=== PATIENT | female | born 1950 | race Caucasian/White ===

== ENCOUNTER 2017-10-09 08:37 | Day surgery (SDC) | payer MEDICARE ==
[2017-10-05 14:51] LABS: BASOPHILS % (AUTO) 0.3 % (0-1); EOSINOPHILS # (AUTO) 0.1 X10'3 (0-0.9); LYMPHOCYTES # (AUTO) 1.9 X10'3 (1.1-4.8); LYMPHOCYTES % (AUTO) 31.3 % (21-51); MEAN CORPUSCULAR HGB CONC 35.6 % (33.0-36.5); MEAN PLATELET VOLUME 7.2 FL (7.4-10.4); MONOCYTES # (AUTO) 0.5 X10'3 (0-0.9); MONOCYTES % (AUTO) 8.8 % (2-12); NEUTROPHILS # (AUTO) 3.5 X10'3 (1.8-7.7); NEUTROPHILS % (AUTO) 57.6 % (42-75); PRE OP HEMATOCRIT 43.5 % (35.0-45.0); PRE OP HEMOGLOBIN 15.5 g/dL (12.0-16.0); PRE OP PLATELET COUNT 289 X10'3 (140-440); RED CELL DISTRIBUTION WIDTH 15.1 % (11.5-14.5)
[2017-10-05 14:53] LABS: CLARITY,URINE CLEAR (Clear); COLOR,URINE YELLOW (Yellow); GLUCOSE, URINE NEGATIVE (Neg); KETONES,URINE TRACE mg/dl (Neg); LEUKOCYTE ESTERASE ,URINE NEGATIVE (Neg); NITRITES, URINE NEGATIVE (Neg); OCCULT BLOOD,URINE NEGATIVE (Neg); PROTEIN,URINE NEGATIVE (Neg)
[2017-10-05 14:55] LABS: UA COLLECTION TYPE CLN CATCH MIDSTREAM
[2017-10-05 15:06] LABS: ALBUMIN 4.2 G/DL (3.4-5.0); ALBUMIN/GLOBULIN RATIO 1.3 (1.1-1.5); ALKALINE PHOSPHATASE 80 IU/L (46-116); BLOOD UREA NITROGEN 18 MG/DL (7-18); BUN/CREATININE RATIO 18.8 (6.6-38.0); CALCIUM 9.6 MG/DL (8.5-10.1); CHLORIDE 101 MMOL/L (99-107); CREATININE 0.96 MG/DL (0.40-0.90); PRE OP ALT 38 U/L (30-65); PRE OP ANION GAP 10 (8-16); PRE OP AST 22 U/L (10-37); PRE OP BILIRUB, TOTAL 0.5 MG/DL (0.0-1.0); PRE OP GLUCOSE 124 MG/DL (70-104); PRE OP POTASSIUM 3.7 MMOL/L (3.4-5.1); PRE OP SODIUM 142 MMOL/L (135-145); TOTAL CARBON DIOXIDE 31.5 MMOL/L (24-32); TOTAL PROTEIN 7.5 G/DL (6.4-8.2); eGFR 58 ML/MIN
[~2017-10-09] VITALS: Ht 165.1 cm; Wt 93.3 kg
[2017-10-09] VITALS (12 sets, daily range): BP systolic 125–167; BP diastolic 55–89
[~2017-10-09 08:37] MED LIST: BUSP5TAB3 PO; CYAN100087 PO; Cefazolin 2GM/100ML NS IVPB IV ONE; DULO60CA64 PO; HYDR-565 PO; HYDR25TA4 PO; LUTE10TA PO; MECL12.584 PO; MELA5TAB12 PO; OMEP20TA5 PO; ONDA4TAB9 SL; PHEN97.511 PO; PROM25TA14 PO; famotidine 20mg tablet PO ONE; ringers solution, lacted 1,000 ML IV SCH
[2017-10-09] MEDS ORDERED: LIDOcaine 1% (10mg/ml) 2ml vial ONE (09:23)
[2017-10-09] MEDS ORDERED: ringers solution, lacted 1,000 ML IV SCH (10:49)
[2017-10-09] MEDS ORDERED: morphine 4 MG/ML inj SYRINge IV PRN ×2 (10:50)
[2017-10-09] MEDS ORDERED: proCHLORperazine 10 MG/2 ml inj IV PRN (10:50)
[2017-10-09] MEDS ORDERED: ondansetron/PF 4mg/2ml inj IV PRN (10:50)
[2017-10-09] MEDS ORDERED: meperidine/PF 50mg/ml syringe IV PRN ×2 (10:50)
[2017-10-09] MEDS ORDERED: sevoflurane 250ml liquid IH ONE (11:40)
[2017-10-09] MEDS ORDERED: midazolam 2 mg/2 ml injection ONE (11:41)
[2017-10-09] MEDS ORDERED: fentaNYL/PF 50MCG/1 ML 2ML syringe ONE (11:41)
[2017-10-09] MEDS ORDERED: propofol inj 20 ML IV ONE (11:53)
[2017-10-09] MEDS ORDERED: rocuronium 10mg/ml inj IV ONE (11:53)
[2017-10-09] MEDS ORDERED: glycopyrrolate 0.2mg/ml inj ONE (11:59)
[2017-10-09] MEDS ORDERED: neostigmine methylsulfate 1 MG/ML 10ml vial ONE (11:59)
[2017-10-09] MEDS ORDERED: ondansetron/PF 4mg/2ml inj ONE (11:59)
[2017-10-09] MEDS ORDERED: LIDOcaine 2% (20mg/ml) 5ml vial ONE (11:59)
[2017-10-09] MEDS ORDERED: dexamethasone sod phosphate 4mg/ml inj. ONE (11:59)
[2017-10-09] MEDS: meperidine/PF 50mg/ml syringe IV PRN ×2 (13:15→13:20)
[2017-10-09] MEDS ORDERED: acetaminophen 1,000mg/100ml IV 100 ML IV ONE (13:30)
[2017-10-09] MEDS ORDERED: HYDROcodone/acetaminophen 10/325mg tab PO PRN ×2 (13:50)
== END 2017-10-09 14:10 | disposition home or self-care (01) ==
LOC: PAS 08:37
PROVIDERS: ATTEND Surgery
DX: K80.12 Calculus of gallbladder with acute and chronic cholecystitis without obstruction (principal); I10 Essential (primary) hypertension; E66.9 Obesity, unspecified; K21.9 Gastro-esophageal reflux disease without esophagitis; M19.90 Unspecified osteoarthritis, unspecified site; M79.7 Fibromyalgia; Z68.34 Body mass index [BMI] 34.0-34.9, adult; Z88.4 Allergy status to anesthetic agent; Z79.82 Long term (current) use of aspirin; Z90.710 Acquired absence of both cervix and uterus; Z98.890 Other specified postprocedural states; Z79.899 Other long term (current) drug therapy
CPT/HCPCS: 36415; 47562; 80053; 81003; 85025; 93005; A6251; J0131; J0690; J1100; J2001; J2175; J2250; J2270; J2405; J2704; J2710; J3010; J3490; J7120; 88304; A7000

== ENCOUNTER 2020-04-26 16:43 | Emergency (ER) | payer MEDICARE ==
[~2020-04-26] VITALS: Ht 170.2 cm; Wt 90.0 kg
[~2020-04-26 16:43] MED LIST changes: -Cefazolin 2GM/100ML NS IVPB IV ONE; -DULO60CA64 PO; +DULO60CA65 PO; +HYDR-4353 PO; -HYDR-565 PO; +MECL-184 PO; -MECL12.584 PO; -famotidine 20mg tablet PO ONE; -ringers solution, lacted 1,000 ML IV SCH
[2020-04-26 16:51] VITALS: BP 184/98
== END 2020-04-26 18:16 | disposition home or self-care (01) ==
LOC: ER 16:43
DX: R05 Cough (principal); Z20.828 Contact with and (suspected) exposure to other viral communicable diseases; J06.9 Acute upper respiratory infection, unspecified; Z88.8 Allergy status to other drugs, medicaments and biological substances; Z79.899 Other long term (current) drug therapy
CPT/HCPCS: 36415; 71045; 87635; 99284

== ENCOUNTER 2020-10-31 09:19 | Emergency (ER) | payer MEDICARE ==
[~2020-10-31] VITALS: Ht 165.1 cm; Wt 100.0 kg
[~2020-10-31 09:19] MED LIST changes: -MECL-184 PO; +MECL-231 PO
[2020-10-31] MEDS ORDERED: morphine 4 MG/ML inj SYRINge IM ONE (09:35)
[2020-10-31] MEDS ORDERED: ondansetron 4mg rapidly disintigrating tab PO ONE (09:35)
[2020-10-31] MEDS ORDERED: TETanus/Pertussis (Acell)/Diphther VAC/PF (Tdap-Adult) 0.5ml syringe IMVAC ONE (10:45)
[2020-10-31 10:55] VITALS: BP 168/75
== END 2020-10-31 11:06 | disposition home or self-care (01) ==
LOC: ER 09:19
DX: S20.211A Contusion of right front wall of thorax, initial encounter (principal); S90.811A Abrasion, right foot, initial encounter; S09.90XA Unspecified injury of head, initial encounter; M25.521 Pain in right elbow; M79.7 Fibromyalgia; Z79.2 Long term (current) use of antibiotics; Z88.8 Allergy status to other drugs, medicaments and biological substances; Z79.899 Other long term (current) drug therapy; W18.30XA Fall on same level, unspecified, initial encounter; Y93.89 Activity, other specified; Y92.89 Other specified places as the place of occurrence of the external cause; Y99.8 Other external cause status
CPT/HCPCS: 70450; 71101; 90471; 90715; 96372; 99284; J2270

== ENCOUNTER 2020-11-07 11:01 | Emergency (ER) | payer MEDICARE ==
[~2020-11-07] VITALS: Ht 165.1 cm; Wt 99.0 kg
[2020-11-07 11:12] VITALS: BP 169/69
[2020-11-07] MEDS ORDERED: ketorolac trometh inj. 60 MG/2 ML VIAL IM ONE (12:30)
[2020-11-07] MEDS ORDERED: morphine 4 MG/ML inj SYRINge IM ONE (12:30)
[2020-11-07] MEDS ORDERED: LIDO700A32 TOP (12:57)
== END 2020-11-07 13:25 | disposition home or self-care (01) ==
LOC: ER 11:01
DX: R07.81 Pleurodynia (principal); M79.7 Fibromyalgia; Z88.8 Allergy status to other drugs, medicaments and biological substances; Z79.899 Other long term (current) drug therapy
CPT/HCPCS: 71046; 96372; 99284; J1885

== ENCOUNTER 2021-05-18 14:50 | Emergency (ER) | payer MEDICARE ==
[~2021-05-18] VITALS: Ht 166.4 cm; Wt 106.4 kg
[~2021-05-18 14:50] MED LIST changes: +LIDO700A32 TOP
--- NOTE | 2021-05-18 18:49 | NUR ---
Patient awake in bed with grand daughter at bedside. She denies taking additional norco and that she is actually cutting back on them. She states she slipped out of her bed and was too weak to get up which is new for her. She also reports that she has been struggling to remember things for approximately 1 month. CBG and EKG performed. IV placed and labs drawn.
[2021-05-18 18:59] LABS: LYMPHOCYTES # (AUTO) 0.7 X10'3 (1.1-4.8); RED CELL DISTRIBUTION WIDTH 14.2 % (11.5-14.5); WHITE BLOOD COUNT 5.3 X10'3 (4.5-11.0)
[2021-05-18 19:01] LABS: BASOPHILS % (AUTO) 0.8 % (0-1); EOSINOPHILS % (AUTO) 0.4 % (0-6); HEMATOCRIT 40.7 % (35.0-45.0); HEMOGLOBIN 13.9 g/dl (12.0-16.0); LYMPHOCYTES % (AUTO) 13.2 % (21-51); MEAN CORPUSCULAR HEMOGLOBIN 30.9 PG (27.0-31.0); MEAN CORPUSCULAR HGB CONC 34.1 g/dL (33.0-36.5); MEAN CORPUSCULAR VOLUME 90.5 FL (78-98); MEAN PLATELET VOLUME 7.5 FL (7.4-10.4); MONOCYTES # (AUTO) 0.5 X10'3 (0-0.9); MONOCYTES % (AUTO) 10.1 % (2-12); NEUTROPHILS % (AUTO) 75.5 % (42-75); PLATELET COUNT 166 X10'3 (140-440)
[2021-05-18 19:09] LABS: ALANINE AMINOTRANSFERASE 32 U/L (12-78); ALBUMIN 3.4 G/DL (3.4-5.0); ALKALINE PHOSPHATASE 70 IU/L (46-116); ANION GAP 8 (8-16); ASPARTATE AMINO TRANSFERASE 20 U/L (10-37); BILIRUBIN,TOTAL 0.7 MG/DL (0.1-1.0); BLOOD UREA NITROGEN 9 MG/DL (7-18); BUN/CREATININE RATIO 8.3 (6.6-38.0); CALCIUM 8.5 MG/DL (8.5-10.1); CHLORIDE 101 MMOL/L (99-107); CREATININE 1.08 MG/DL (0.40-0.90); GLUCOSE 111 MG/DL (70-104); SODIUM 141 MMOL/L (135-145); TOTAL CARBON DIOXIDE 31.6 MMOL/L (24-32); TOTAL PROTEIN 6.8 G/DL (6.4-8.2); eGFR 50 ML/MIN
[2021-05-18 19:11] LABS: CLARITY,URINE SLIGHTLY CLOUDY (Clear); COLOR,URINE YELLOW (Yellow); GLUCOSE, URINE NEGATIVE (Neg); KETONES,URINE NEGATIVE (Neg); LEUKOCYTE ESTERASE ,URINE NEGATIVE (Neg); NITRITES, URINE NEGATIVE (Neg); OCCULT BLOOD,URINE NEGATIVE (Neg); PROTEIN,URINE NEGATIVE (Neg); UROBILINOGEN,URINE 0.2 E.U/dL (0.2-1.0)
[2021-05-18 19:15] LABS: UA COLLECTION TYPE STRAIGHT CATH
[2021-05-18 19:17] LABS: BACTERIA,URINE FEW /HPF (Neg); MUCUS STRANDS FEW /LPF (Neg); RBC,URINE 0-2 /HPF (0-2); SQUAMOUS EPITHELIAL CELL,UR MODERATE /LPF (FEW); WBC,URINE 0-4 /HPF (0-4)
[2021-05-18] MEDS: amox tr/potassium clavulanate 875/125mg TAB PO ONE (19:17)
[2021-05-18 19:18] LABS: TRANSITIONAL EPI CELLS,URINE FEW /HPF
--- NOTE | 2021-05-18 19:25 | NUR ---
Patient medicated and updated on POC.
[2021-05-18] MEDS ORDERED: AMOX-422 PO (19:34)
[2021-05-18 19:50] VITALS: BP 130/57
== END 2021-05-18 19:58 | disposition home or self-care (01) ==
LOC: ER 14:50
DX: T40.601A Poisoning by unspecified narcotics, accidental (unintentional), initial encounter (principal); K02.9 Dental caries, unspecified; K04.7 Periapical abscess without sinus; K08.89 Other specified disorders of teeth and supporting structures; Z88.8 Allergy status to other drugs, medicaments and biological substances; Z79.2 Long term (current) use of antibiotics; Z79.899 Other long term (current) drug therapy; Y92.89 Other specified places as the place of occurrence of the external cause
CPT/HCPCS: 36415; 71045; 80053; 81001; 82948; 83880; 84484; 85025; 93005; 99285

== ENCOUNTER 2021-05-22 11:54 | Emergency (ER) | payer MEDICARE ==
[~2021-05-22] VITALS: Ht 165.1 cm; Wt 104.5 kg
[~2021-05-22 11:54] MED LIST changes: +AMOX-422 PO
[2021-05-22 12:33] LABS: BASOPHILS # (AUTO) 0.1 X10'3 (0-0.2); BASOPHILS % (AUTO) 0.9 % (0-1); EOSINOPHILS # (AUTO) 0.1 X10'3 (0-0.9); EOSINOPHILS % (AUTO) 1.3 % (0-6); HEMATOCRIT 46.1 % (35.0-45.0); HEMOGLOBIN 16.1 g/dl (12.0-16.0); LYMPHOCYTES # (AUTO) 1.4 X10'3 (1.1-4.8); LYMPHOCYTES % (AUTO) 25.3 % (21-51); MEAN CORPUSCULAR HEMOGLOBIN 31.2 PG (27.0-31.0); MEAN CORPUSCULAR VOLUME 89.1 FL (78-98); MEAN PLATELET VOLUME 7.7 FL (7.4-10.4); MONOCYTES # (AUTO) 0.7 X10'3 (0-0.9); MONOCYTES % (AUTO) 12.5 % (2-12); NEUTROPHILS # (AUTO) 3.4 X10'3 (1.8-7.7); PLATELET COUNT 268 X10'3 (140-440); RED BLOOD COUNT 5.18 X10'6 (4.20-5.60); RED CELL DISTRIBUTION WIDTH 14.1 % (11.5-14.5); WHITE BLOOD COUNT 5.6 X10'3 (4.5-11.0)
[2021-05-22 12:47] LABS: ALANINE AMINOTRANSFERASE 49 U/L (12-78); ALBUMIN 3.9 G/DL (3.4-5.0); ALBUMIN/GLOBULIN RATIO 0.9 (1.1-1.5); ALKALINE PHOSPHATASE 82 IU/L (46-116); ANION GAP 14 (8-16); ASPARTATE AMINO TRANSFERASE 40 U/L (10-37); BILIRUBIN,TOTAL 0.9 MG/DL (0.1-1.0); BLOOD UREA NITROGEN 18 MG/DL (7-18); BUN/CREATININE RATIO 18.9 (6.6-38.0); CALCIUM 9.2 MG/DL (8.5-10.1); CHLORIDE 102 MMOL/L (99-107); CREATININE 0.95 MG/DL (0.40-0.90); GLUCOSE 129 MG/DL (70-104); POTASSIUM 3.6 MMOL/L (3.5-5.1); SODIUM 141 MMOL/L (135-145); TOTAL CARBON DIOXIDE 25.3 MMOL/L (24-32); TOTAL PROTEIN 8.1 G/DL (6.4-8.2); eGFR 58 ML/MIN
[2021-05-22 12:57] LABS: LIPASE 141 U/L (73-393)
--- NOTE | 2021-05-22 13:20 | NUR ---
grand daughter at bedside.
[2021-05-22] MEDS ORDERED: normal saline 1000ML IV soln IVB ONE ×2 (13:35→13:45)
[2021-05-22] MEDS ORDERED: ondansetron/PF 4mg/2ml inj IV ONE (13:45)
[2021-05-22] MEDS ORDERED: morphine 4 MG/ML inj SYRINge IV PRN (13:45)
--- NOTE | 2021-05-22 15:02 | NUR ---
notified dr kelley regarding pt condition c/o headache systolic bp 220 ,nauseaous ,c/o blurred vision ,as per md she will order head ct .
--- NOTE | 2021-05-22 15:04 | NUR ---
grand daughter at [facility].
[2021-05-22] MEDS ORDERED: diphenhydrAMINE 50 mg/ml inj IV ONE (15:15)
[2021-05-22] MEDS ORDERED: proCHLORperazine 10 MG/2 ml inj IV ONE (15:15)
[2021-05-22 16:47] LABS: CLARITY,URINE SLIGHTLY CLOUDY (Clear); GLUCOSE, URINE NEGATIVE (Neg); KETONES,URINE >=80 mg/dl (Neg); LEUKOCYTE ESTERASE ,URINE NEGATIVE (Neg); NITRITES, URINE NEGATIVE (Neg); OCCULT BLOOD,URINE NEGATIVE (Neg); PROTEIN,URINE 30 mg/dl (Neg); UROBILINOGEN,URINE 0.2 E.U/dL (0.2-1.0)
[2021-05-22 16:55] LABS: COLOR,URINE DARK YELLOW (Yellow); UA COLLECTION TYPE OTHER
[2021-05-22 16:58] VITALS: BP 180/92
[2021-05-22] MEDS ORDERED: ONDA4TAB12 PO ×3 (16:58→17:02)
[2021-05-22 17:03] LABS: BACTERIA,URINE 1+ /HPF (Neg); MUCUS STRANDS MODERATE /LPF (Neg); RBC,URINE 0-2 /HPF (0-2); SQUAMOUS EPITHELIAL CELL,UR MANY /LPF (FEW); TRANSITIONAL EPI CELLS,URINE FEW /HPF; WBC,URINE 0-4 /HPF (0-4); YEAST FEW /HPF (NEGATIVE)
== END 2021-05-22 17:18 | disposition home or self-care (01) ==
LOC: ER 11:54
DX: R53.1 Weakness (principal); R51.9 Headache, unspecified; R42 Dizziness and giddiness; E86.0 Dehydration; A08.4 Viral intestinal infection, unspecified; K04.7 Periapical abscess without sinus; M79.7 Fibromyalgia; Z79.899 Other long term (current) drug therapy; Z79.2 Long term (current) use of antibiotics; Z88.8 Allergy status to other drugs, medicaments and biological substances
CPT/HCPCS: 36415; 70450; 71045; 74176; 80053; 81001; 83690; 84443; 84484; 85025; 93005; 96361; 96374; 96375; 99285; J0780; J1200; J2270; J2405; J7030

== ENCOUNTER 2021-05-26 09:56 | Emergency (ER) | payer MEDICARE ==
[~2021-05-26] VITALS: Ht 165.1 cm; Wt 106.4 kg
[~2021-05-26 09:56] MED LIST changes: +ONDA4TAB12 PO
[2021-05-26] MEDS ORDERED: morphine 4 MG/ML inj SYRINge IV PRN (10:10)
[2021-05-26] MEDS ORDERED: ondansetron/PF 4mg/2ml inj IV ONE (10:10)
[2021-05-26] MEDS ORDERED: normal saline 1000ML IV soln IVB ONE (10:10)
[2021-05-26 10:32] LABS: BASOPHILS # (AUTO) 0.1 X10'3 (0-0.2); BASOPHILS % (AUTO) 0.9 % (0-1); EOSINOPHILS % (AUTO) 0.8 % (0-6); HEMATOCRIT 46.1 % (35.0-45.0); HEMOGLOBIN 16.2 g/dl (12.0-16.0); LYMPHOCYTES # (AUTO) 1.6 X10'3 (1.1-4.8); LYMPHOCYTES % (AUTO) 25.2 % (21-51); MEAN CORPUSCULAR HEMOGLOBIN 31.4 PG (27.0-31.0); MEAN CORPUSCULAR HGB CONC 35.2 g/dL (33.0-36.5); MEAN CORPUSCULAR VOLUME 89.4 FL (78-98); MEAN PLATELET VOLUME 7.7 FL (7.4-10.4); MONOCYTES # (AUTO) 0.6 X10'3 (0-0.9); MONOCYTES % (AUTO) 9.6 % (2-12); NEUTROPHILS % (AUTO) 63.5 % (42-75); PLATELET COUNT 394 X10'3 (140-440); RED BLOOD COUNT 5.16 X10'6 (4.20-5.60); RED CELL DISTRIBUTION WIDTH 13.8 % (11.5-14.5); WHITE BLOOD COUNT 6.3 X10'3 (4.5-11.0)
[2021-05-26] MEDS ORDERED: METO-292 PO (10:39)
[2021-05-26 10:51] LABS: ALANINE AMINOTRANSFERASE 82 U/L (12-78); ALBUMIN/GLOBULIN RATIO 1.1 (1.1-1.5); ALKALINE PHOSPHATASE 78 IU/L (46-116); ANION GAP 17 (8-16); ASPARTATE AMINO TRANSFERASE 66 U/L (10-37); BILIRUBIN,TOTAL 0.9 MG/DL (0.1-1.0); BLOOD UREA NITROGEN 15 MG/DL (7-18); BUN/CREATININE RATIO 16.5 (6.6-38.0); CALCIUM 9.3 MG/DL (8.5-10.1); CHLORIDE 101 MMOL/L (99-107); CREATININE 0.91 MG/DL (0.40-0.90); GLUCOSE 137 MG/DL (70-104); POTASSIUM 3.5 MMOL/L (3.5-5.1); SODIUM 142 MMOL/L (135-145); TOTAL CARBON DIOXIDE 24.3 MMOL/L (24-32); TOTAL PROTEIN 7.5 G/DL (6.4-8.2); eGFR 61 ML/MIN
[2021-05-26 10:53] LABS: LIPASE 151 U/L (73-393)
--- NOTE | 2021-05-26 12:49 | NUR ---
PT AMBULATORY WITH RN AND FAMILY MEMBER ASSIST TO BATHROOM AND BACK TO ROOM. TOLERATED WELL.
[2021-05-26 13:36] VITALS: BP 173/83
[2021-05-26 13:38] LABS: CLARITY,URINE SLIGHTLY CLOUDY (Clear); COLOR,URINE YELLOW (Yellow); GLUCOSE, URINE NEGATIVE (Neg); KETONES,URINE >=80 mg/dl (Neg); LEUKOCYTE ESTERASE ,URINE NEGATIVE (Neg); NITRITES, URINE NEGATIVE (Neg); OCCULT BLOOD,URINE NEGATIVE (Neg); PROTEIN,URINE TRACE mg/dl (Neg); UROBILINOGEN,URINE 0.2 E.U/dL (0.2-1.0)
[2021-05-26 13:52] LABS: UA COLLECTION TYPE VOIDED
[2021-05-26 13:54] LABS: SQUAMOUS EPITHELIAL CELL,UR MANY /LPF (FEW)
[2021-05-26 13:56] LABS: MUCUS STRANDS MODERATE /LPF (Neg)
[2021-05-26 13:57] LABS: BACTERIA,URINE 1+ /HPF (Neg)
[2021-05-26 13:58] LABS: WBC,URINE 0-4 /HPF (0-4)
[2021-05-26 13:59] LABS: RBC,URINE 0-2 /HPF (0-2)
[2021-05-26 14:08] LABS: CAL OXALATE CRYSTALS 1+ /HPF (NEGATIVE)
== END 2021-05-26 14:01 | disposition home or self-care (01) ==
LOC: ER 09:56
DX: A08.4 Viral intestinal infection, unspecified (principal); R11.2 Nausea with vomiting, unspecified; R19.7 Diarrhea, unspecified; R10.84 Generalized abdominal pain; Z88.8 Allergy status to other drugs, medicaments and biological substances; Z79.2 Long term (current) use of antibiotics; Z79.899 Other long term (current) drug therapy
CPT/HCPCS: 36415; 80053; 81001; 83690; 84484; 85025; 96374; 96375; 99284; J2270; J2405; J7030

== ENCOUNTER 2022-01-23 05:22 | Inpatient (IN) | payer MEDICARE ==
[2022-01-18 16:04] LABS: EOSINOPHILS # (AUTO) 0.1 X10'3 (0-0.9); EOSINOPHILS % (AUTO) 2.1 % (0-6); LYMPHOCYTES # (AUTO) 1.3 X10'3 (1.1-4.8); LYMPHOCYTES % (AUTO) 28.4 % (21-51); MEAN CORPUSCULAR HEMOGLOBIN 31.2 PG (27.0-31.0); MEAN CORPUSCULAR HGB CONC 34.2 g/dL (33.0-36.5); MEAN CORPUSCULAR VOLUME 91.4 FL (78-98); MEAN PLATELET VOLUME 8.1 FL (7.4-10.4); MONOCYTES # (AUTO) 0.4 X10'3 (0-0.9); MONOCYTES % (AUTO) 9.3 % (2-12); NEUTROPHILS # (AUTO) 2.8 X10'3 (1.8-7.7); NEUTROPHILS % (AUTO) 59.2 % (42-75); PRE OP HEMATOCRIT 43.2 % (35.0-45.0); PRE OP HEMOGLOBIN 14.7 g/dL (12.0-16.0); PRE OP PLATELET COUNT 199 X10'3 (140-440); RED BLOOD COUNT 4.72 X10'6 (4.20-5.60); RED CELL DISTRIBUTION WIDTH 13.3 % (11.5-14.5)
[2022-01-18 16:16] LABS: PRE OP INR 1.1 INR; PRE OP PROTIME 10.9 SECONDS (9.0-12.0)
[2022-01-18 16:28] LABS: ALBUMIN 4.1 G/DL (3.4-5.0); ALBUMIN/GLOBULIN RATIO 1.2 (1.1-1.5); ALKALINE PHOSPHATASE 90 IU/L (46-116); BLOOD UREA NITROGEN 13 MG/DL (7-18); CALCIUM 8.9 MG/DL (8.5-10.1); CHLORIDE 105 MMOL/L (99-107); PRE OP ALT 43 U/L (30-65); PRE OP ANION GAP 11 (8-16); PRE OP AST 26 U/L (10-37); PRE OP BILIRUB, TOTAL 0.6 MG/DL (0.0-1.0); PRE OP GLUCOSE 135 MG/DL (70-104); PRE OP SODIUM 145 MMOL/L (135-145); TOTAL CARBON DIOXIDE 28.7 MMOL/L (24-32); TOTAL PROTEIN 7.4 G/DL (6.4-8.2); eGFR 54 ML/MIN
[2022-01-23] VITALS (22 sets, daily range): BP systolic 99–169; BP diastolic 44–87
[~2022-01-23] VITALS: Ht 165.1 cm; Wt 104.2 kg
[~2022-01-23 05:22] MED LIST changes: -AMOX-422 PO; +ASCO1TAB42 PO; +ATOR10TA70 PO; +BETA1TAB18 PO; +CHOL400T57 PO; -DULO60CA65 PO; +FIBERWELL PO; +GLIP5TAB13 PO; -HYDR-4353 PO; -HYDR25TA4 PO; +LACT1CAP65 PO; -LIDO700A32 TOP; -LUTE10TA PO; -MECL-231 PO; +METO-384 PO; +MIRA50TA PO; +MULT-1085 PO; +OMEP20TA43 PO; -OMEP20TA5 PO; -ONDA4TAB12 PO; -PHEN97.511 PO; +POWER C PO; +PREG300C PO
[2022-01-23] MEDS ORDERED: famotidine 20mg tablet PO ONE (05:30)
[2022-01-23] MEDS ORDERED: DOCUMENT DATE & TIME OF BETA-BLOCKER PO ONE (05:30)
[2022-01-23] MEDS ORDERED: tranexamic acid inj. 1,000 MG in normal saline 100ml IV soln 90 ML IV ONE (05:30)
[2022-01-23] MEDS ORDERED: vancomycin 1,500 MG in NS 300ml IV soln IV ONE (05:30)
[2022-01-23] MEDS ORDERED: ceFAZolin inj. 2,000 MG in dextrose 5%-water 100 ML IV ONE (05:30)
--- NOTE | 2022-01-23 05:30 | NUR ---
CSM: PEDAL PULSES PRESENT AND MARKED. PATIENT USED MUPIROCIN CREAM AND READ BROCHURE. EDUCATED PATIENT ON THE USE OF THE INCENTIVE SPIROMETER
[2022-01-23] MEDS: ringers solution, lacted 1,000 ML IV SCH ×2 (05:56→12:36)
[2022-01-23] MEDS ORDERED: ketorolac trometh. 30mg/ml inj. ONE (06:42)
[2022-01-23] MEDS ORDERED: cloNIDine hcl/PF 100mcg/ml inj ONE ×2 (06:43→07:12)
[2022-01-23] MEDS ORDERED: vancomycin 1,000mg inj ONE (06:43)
[2022-01-23] MEDS ORDERED: ROPIVAcaine 0.5% (5mg/ml) 30ml vial ONE ×2 (06:43→07:12)
[2022-01-23] MEDS ORDERED: fentaNYL /PF 50mcg/ml 5ml ampule ONE (07:14)
[2022-01-23] MEDS ORDERED: ePHEDrine 50MG/ML INJ. ONE (07:20)
[2022-01-23] MEDS ORDERED: sevoflurane 250ml liquid IH ONE (07:20)
[2022-01-23] MEDS ORDERED: HYDROmorphone/PF 0.2 MG/ML SYRINGE IV PRN ×2 (08:45)
[2022-01-23] MEDS ORDERED: ringers solution, lacted 1,000 ML IV SCH (08:45)
[2022-01-23] MEDS ORDERED: ondansetron/PF 4mg/2ml inj IV PRN ×2 (08:45→10:45)
[2022-01-23] MEDS ORDERED: morphine 2 MG/ML inj. syringe IV PRN (08:45)
[2022-01-23] MEDS ORDERED: ROPIVAcaine 0.5% (5mg/ml) 30ml vial IJ ONE (08:48)
[2022-01-23] MEDS ORDERED: cloNIDine hcl/PF 100mcg/ml inj IJ ONE (08:49)
--- NOTE | 2022-01-23 10:35 | NUR ---
Received from OR via ORTHO BED WITH NCTRACY , accompanied by Anesthesiologist FOREST and report given by Anesthesiolgist. PATIENT WITH 20G PIV IN RIGHT UE RUNNING LR AT 100. LEFT KNEE WITH KNEE WRAP THAT IS CDI. STEPHAN VAC IN PLACE WITH SUCTION MAINTAINED TO DRESSING. +DP TO LEFT FOOT. FLOEY CATHETER PRESENT WITH CLEAR YELLOW URINE IN ATRIUM. Addendum: 01/23/22 at 1049 by Kyle Burks RN, RN Amended: Links added.
[2022-01-23] MEDS ORDERED: HYDROcodone/acetaminophen 10/325mg tab PO PRN (10:45)
[2022-01-23] MEDS ORDERED: HYDROmorphone 1 mg/ml syringe IV PRN (10:45)
[2022-01-23] MEDS ORDERED: acetaminophen 325mg tablet PO PRN (10:45)
[2022-01-23] MEDS ORDERED: magnesium hydroxide 30ml (MOM) UD suspension PO PRN (10:45)
[2022-01-23] MEDS ORDERED: bisacodyl 10mg suppository rectal RC PRN (10:45)
[2022-01-23] MEDS ORDERED: HYDROmorphone inj. 0.5 MG/0.5 ML DISP.SYRIN IV PRN (10:45)
[2022-01-23] MEDS ORDERED: naloxone 0.4 mg/ml inj IV PRN (10:45)
[2022-01-23] MEDS ORDERED: diphenhydrAMINE 25mg capsule PO PRN ×2 (10:45)
[2022-01-23] MEDS ORDERED: dextrose 50%-water 50ml dispensing syringe IV PRN ×2 (10:50)
[2022-01-23] MEDS ORDERED: glucagon, human recombinant 1mg kit SUBCUT PRN (10:50)
[2022-01-23] MEDS ORDERED: MESSAGE TO PHARMACY PO ONE (10:50)
[2022-01-23] MEDS ORDERED: DEXTROSE 15 GM of carb/4 tabs (each vial/BOTTLE has 4 tablets) PO PRN ×2 (10:50)
[2022-01-23] MEDS ORDERED: glycopyrrolate 0.2mg/ml inj ONE (10:56)
[2022-01-23] MEDS ORDERED: propofol inj 20 ML IV ONE (10:56)
[2022-01-23] MEDS ORDERED: rocuronium 10mg/ml inj IV ONE (10:56)
[2022-01-23] MEDS ORDERED: dexamethasone sod phosphate 4mg/ml inj. ONE (10:56)
[2022-01-23] MEDS ORDERED: LIDOcaine 2% (20mg/ml) 5ml vial ONE (10:56)
[2022-01-23] MEDS ORDERED: acetaminophen 1,000mg/100ml IV 100 ML IV ONE (10:56)
[2022-01-23] MEDS ORDERED: neostigmine methylsulfate 1 MG/ML 10ml vial ONE (10:56)
[2022-01-23] MEDS ORDERED: ondansetron/PF 4mg/2ml inj ONE (10:56)
[2022-01-23] MEDS ORDERED: insulin regular, human 10 units/0.1 ml syringe IV ONE ×2 (11:10→11:15)
[2022-01-23] MEDS ORDERED: ipratropium/albuterol 3ml nebule NEB PRN (11:10)
[2022-01-23] MEDS: morphine 4 MG/ML inj SYRINge IV PRN ×2 (11:18→11:39)
[2022-01-23] MEDS ORDERED: ipratropium/albuterol 3ml nebule NEB ONE (12:00)
--- NOTE | 2022-01-23 12:05 | NUR ---
CARE OF PATIENT AND REPORT HAS BEEN CALLED. ALL QUESTIONS ANSWERED TO ACCEPTING RN. PATIENT HAS MET ALL CRITERIA FOR TRANSFER TO THE ORTHO FLOOR. VSS. DRESSINGS INTACT. BED LOW, CALL LIGHT PRESENT AND 2 RAILS UP. KANWAL WALKER PRESENT TO ACCEPT. VSS. PATIENT AWAKE AND VERBALLY APPROPRIATE. PAIN AT A TOLERABLE LEVEL. Addendum: 01/23/22 at 1220 by Kyle Chaudhry - KANWAL RN Amended: Links added.
[2022-01-23] MEDS: potassium Cl 20mEq in NS 1,000 ML IV SCH ×2 (12:36→20:18)
[2022-01-23] MEDS: HYDROcodone/acetaminophen 10/325mg tab PO PRN ×2 (13:02→20:06)
[2022-01-23] MEDS: pregabalin 75mg capsule PO SCH (15:45)
[2022-01-23] MEDS: ceFAZolin/D5W- 1GM premix 50 ML IV SCH (16:37)
--- NOTE | 2022-01-23 18:21 | NUR ---
Problems reprioritized. Patient report given, questions answered & plan of care reviewed with KANWAL Luu.
[2022-01-23] MEDS: insulin Lispro (HumaLOG) vial - multi-dose SQ SCH (18:55)
[2022-01-23] MEDS ORDERED: vancomycin/NS 1 GM ADD-VANTAGE 250 ML IV SCH (20:00)
[2022-01-23] MEDS: aspirin 81mg, enteric-coated 1 TAB TABLET.DR PO SCH (20:04)
[2022-01-23] MEDS: sennosides 8.6mg tablet PO SCH (20:04)
[2022-01-23] MEDS: busPIRone 5mg tablet PO SCH (20:04)
[2022-01-23] MEDS: Melatonin 3mg tablet PO SCH (21:00)
[2022-01-23] MEDS: insulin glargine (Lantus) pen - multi-dose SQ SCH (22:49)
[2022-01-24] MEDS: pregabalin 75mg capsule PO SCH ×3 (00:32→15:48)
[2022-01-24] MEDS: ceFAZolin/D5W- 1GM premix 50 ML IV SCH (00:32)
[2022-01-24] MEDS: HYDROcodone/acetaminophen 10/325mg tab PO PRN ×4 (01:41→14:00)
[2022-01-24 02:00] VITALS: BP 114/51
[2022-01-24 06:00] VITALS: BP 105/44
[2022-01-24 06:12] LABS: ANION GAP 7 (8-16); BASOPHILS % (AUTO) 0.4 % (0-1); CHLORIDE 103 MMOL/L (99-107); EOSINOPHILS % (AUTO) 0.2 % (0-6); HEMATOCRIT 35.7 % (35.0-45.0); HEMOGLOBIN 12.1 g/dl (12.0-16.0); LYMPHOCYTES # (AUTO) 1.3 X10'3 (1.1-4.8); LYMPHOCYTES % (AUTO) 16.2 % (21-51); MEAN CORPUSCULAR HEMOGLOBIN 30.9 PG (27.0-31.0); MEAN CORPUSCULAR HGB CONC 34.1 g/dL (33.0-36.5); MEAN CORPUSCULAR VOLUME 90.8 FL (78-98); MEAN PLATELET VOLUME 8.3 FL (7.4-10.4); MONOCYTES # (AUTO) 0.8 X10'3 (0-0.9); MONOCYTES % (AUTO) 10.1 % (2-12); NEUTROPHILS # (AUTO) 5.8 X10'3 (1.8-7.7); NEUTROPHILS % (AUTO) 73.1 % (42-75); PLATELET COUNT 183 X10'3 (140-440); POTASSIUM 4.1 MMOL/L (3.5-5.1); RED BLOOD COUNT 3.93 X10'6 (4.20-5.60); RED CELL DISTRIBUTION WIDTH 13.2 % (11.5-14.5); SODIUM 140 MMOL/L (135-145); WHITE BLOOD COUNT 7.9 X10'3 (4.5-11.0)
--- NOTE | 2022-01-24 06:30 | NUR ---
received report from bull, rn
[2022-01-24] MEDS: aspirin 81mg, enteric-coated 1 TAB TABLET.DR PO SCH ×2 (07:52→19:46)
[2022-01-24] MEDS: busPIRone 5mg tablet PO SCH ×2 (07:53→19:46)
[2022-01-24] MEDS: pantoprazole 40mg Tablet.DR PO SCH (07:53)
[2022-01-24] MEDS: mirabegron 25mg ER tablet PO SCH (07:53)
[2022-01-24] MEDS: metoprolol succinate 25mg (24-HOUR) SR. Tablet PO SCH (07:54)
[2022-01-24] MEDS: insulin Lispro (HumaLOG) vial - multi-dose SQ SCH ×2 (09:43→19:04)
[2022-01-24 11:33] VITALS: BP 125/49
--- NOTE | 2022-01-24 13:23 | NUR ---
SINCE PT BG DROPPED THIS AFTERNOON WILL CONTINUE TO MONITOR BG, THEREFORE PT IS NOT A CANDIDATE FOR INSULIN AT THIS TIME
[2022-01-24 14:00] VITALS: BP 130/52
--- NOTE | 2022-01-24 14:08 | NUR ---
PT F/C WAS D/C BEFORE DAY SHIFT. PT TELLS ME SHE DOESN'T HAVE AN URGE TO VOID, THEREFORE I BLADDER SCANNED HER, SCANNER SAID 135 ML IN BLADDER CONTINUE TO ENCOURAGE PO INTAKE.
--- NOTE | 2022-01-24 14:56 | NUR ---
EDUCATED PT ON HOW TO USE HER IS, PT RETURNED DEMO HER IS, CONTINUE TO ENCOURAGE PT TO USE IS
[2022-01-24] MEDS: potassium Cl 20mEq in NS 1,000 ML IV SCH (15:06)
--- NOTE | 2022-01-24 15:14 | NUR ---
SURGEON AT BEDSIDE AND IS AWARE OF PT KIDNEY FUNCTION AND IS AWARE THAT PT HAS NOT VOIDED YET
[2022-01-24] MEDS: oxyCODONE IR 5mg (immed. release) tablet PO PRN ×2 (15:47→19:46)
--- NOTE | 2022-01-24 18:23 | NUR ---
GAVE REPORT TO September
[2022-01-24 18:30] VITALS: BP 113/43
[2022-01-24] MEDS: sennosides 8.6mg tablet PO SCH (21:00)
[2022-01-24] MEDS: Melatonin 3mg tablet PO SCH (21:00)
[2022-01-24 22:00] VITALS: BP 137/59
[2022-01-24] MEDS: insulin glargine (Lantus) pen - multi-dose SQ SCH (22:44)
[2022-01-24] MEDS: temazepam 15mg capsule PO PRN (22:45)
[2022-01-25] MEDS: pregabalin 75mg capsule PO SCH ×3 (00:33→15:46)
[2022-01-25] MEDS: oxyCODONE IR 5mg (immed. release) tablet PO PRN ×5 (00:43→21:54)
[2022-01-25] MEDS: potassium Cl 20mEq in NS 1,000 ML IV SCH (02:45)
[2022-01-25 06:00] VITALS: BP 148/68
[2022-01-25 06:27] LABS: BASOPHILS % (AUTO) 0.6 % (0-1); EOSINOPHILS # (AUTO) 0.2 X10'3 (0-0.9); HEMATOCRIT 34.6 % (35.0-45.0); HEMOGLOBIN 11.7 g/dl (12.0-16.0); LYMPHOCYTES # (AUTO) 1.3 X10'3 (1.1-4.8); LYMPHOCYTES % (AUTO) 17.5 % (21-51); MEAN CORPUSCULAR HEMOGLOBIN 31.1 PG (27.0-31.0); MEAN CORPUSCULAR VOLUME 91.5 FL (78-98); MEAN PLATELET VOLUME 8.4 FL (7.4-10.4); MONOCYTES # (AUTO) 0.9 X10'3 (0-0.9); MONOCYTES % (AUTO) 11.7 % (2-12); NEUTROPHILS # (AUTO) 5.1 X10'3 (1.8-7.7); NEUTROPHILS % (AUTO) 67.2 % (42-75); PLATELET COUNT 144 X10'3 (140-440); RED BLOOD COUNT 3.78 X10'6 (4.20-5.60); RED CELL DISTRIBUTION WIDTH 13.5 % (11.5-14.5); WHITE BLOOD COUNT 7.6 X10'3 (4.5-11.0)
--- NOTE | 2022-01-25 06:42 | NUR ---
Patient in room ORTHO 4022. I have received report from KANWAL Luu and had the opportunity to ask questions and assume patient care.
[2022-01-25] MEDS: aspirin 81mg, enteric-coated 1 TAB TABLET.DR PO SCH ×2 (07:16→19:25)
[2022-01-25] MEDS: metoprolol succinate 25mg (24-HOUR) SR. Tablet PO SCH (07:16)
[2022-01-25] MEDS: busPIRone 5mg tablet PO SCH ×2 (07:16→19:25)
[2022-01-25] MEDS: pantoprazole 40mg Tablet.DR PO SCH (07:16)
[2022-01-25] MEDS: mirabegron 25mg ER tablet PO SCH (07:17)
[2022-01-25] MEDS: insulin Lispro (HumaLOG) vial - multi-dose SQ SCH ×3 (09:00→19:24)
[2022-01-25 10:00] VITALS: BP 161/52
[2022-01-25 14:00] VITALS: BP 132/47
--- NOTE | 2022-01-25 16:14 | NUR ---
Patient has not had a bowel movement since prior to admit (01/23). Offered MOM to the patient today but she refused.
[2022-01-25 17:00] VITALS: BP 144/58
--- NOTE | 2022-01-25 18:30 | NUR ---
Problems reprioritized. Patient report given, questions answered & plan of care reviewed with KANWAL Baker.
--- NOTE | 2022-01-25 18:30 | NUR ---
Patient in room ORTHO 4022. I have received report from Di SCHOFIELD and had the opportunity to ask questions and assume patient care.
--- NOTE | 2022-01-25 19:31 | NUR ---
pt educated to walk but refused. pt offered Milk of Mag and senokot and refused. she stated her last BM was a week ago but she "doesn't have problems with that." frq monitoring
[2022-01-25] MEDS: sennosides 8.6mg tablet PO SCH (21:00)
[2022-01-25] MEDS: Melatonin 3mg tablet PO SCH ×2 (21:00→21:42)
[2022-01-25] MEDS: temazepam 15mg capsule PO PRN (21:50)
[2022-01-25] MEDS: insulin glargine (Lantus) pen - multi-dose SQ SCH (21:50)
[2022-01-25 22:00] VITALS: BP 151/57
[2022-01-26] MEDS: pregabalin 75mg capsule PO SCH ×2 (00:20→09:39)
[2022-01-26] MEDS: oxyCODONE IR 5mg (immed. release) tablet PO PRN ×2 (04:17→09:53)
[2022-01-26 06:20] LABS: BASOPHILS % (AUTO) 0.4 % (0-1); EOSINOPHILS # (AUTO) 0.2 X10'3 (0-0.9); HEMATOCRIT 34.3 % (35.0-45.0); HEMOGLOBIN 11.7 g/dl (12.0-16.0); LYMPHOCYTES % (AUTO) 13.2 % (21-51); MEAN CORPUSCULAR HEMOGLOBIN 30.9 PG (27.0-31.0); MEAN CORPUSCULAR HGB CONC 34.2 g/dL (33.0-36.5); MEAN CORPUSCULAR VOLUME 90.4 FL (78-98); MEAN PLATELET VOLUME 8.6 FL (7.4-10.4); MONOCYTES # (AUTO) 0.8 X10'3 (0-0.9); MONOCYTES % (AUTO) 10.7 % (2-12); NEUTROPHILS # (AUTO) 5.4 X10'3 (1.8-7.7); NEUTROPHILS % (AUTO) 72.7 % (42-75); PLATELET COUNT 168 X10'3 (140-440); RED BLOOD COUNT 3.79 X10'6 (4.20-5.60); RED CELL DISTRIBUTION WIDTH 13.2 % (11.5-14.5); WHITE BLOOD COUNT 7.5 X10'3 (4.5-11.0)
--- NOTE | 2022-01-26 06:35 | NUR ---
Problems reprioritized. Patient report given, questions answered & plan of care reviewed with Ladi SCHOFIELD.
[2022-01-26 07:00] VITALS: BP 153/48
[2022-01-26] MEDS: metoprolol succinate 25mg (24-HOUR) SR. Tablet PO SCH (09:39)
[2022-01-26] MEDS: mirabegron 25mg ER tablet PO SCH (09:39)
[2022-01-26] MEDS: busPIRone 5mg tablet PO SCH (09:39)
[2022-01-26] MEDS: pantoprazole 40mg Tablet.DR PO SCH (09:39)
[2022-01-26] MEDS: aspirin 81mg, enteric-coated 1 TAB TABLET.DR PO SCH (09:39)
[2022-01-26] MEDS: insulin Lispro (HumaLOG) vial - multi-dose SQ SCH (09:47)
[2022-01-26 10:00] VITALS: BP 137/43
--- NOTE | 2022-01-26 13:25 | NUR ---
Patient stable and appropriate for transfer to [facility] with concetta cargo. No IV, all belongings taken from room. Report called to Mandeep at receiving facility, all questions answered.
--- NOTE | 2022-02-03 14:00 | NUR ---
Case Management DC follow up: Patient transferred to [facility]; a correction facility.
== END 2022-01-26 13:25 | DRG 470 ==
LOC: PAS 05:22 → ORTHO 4S 10:49
PROVIDERS: ADMIT Orthopaedic Surgery; ATTEND Orthopaedic Surgery
PROC: 3E0T3BZ Introduction of Anesthetic Agent into Peripheral Nerves and Plexi, Percutaneous Approach (ICD-10-PCS; 2022-01-23)
PROC: 3E0T33Z Introduction of Anti-inflammatory into Peripheral Nerves and Plexi, Percutaneous Approach (ICD-10-PCS; 2022-01-23)
PROC: 0SRD0J9 Replacement of Left Knee Joint with Synthetic Substitute, Cemented, Open Approach (ICD-10-PCS; principal; 2022-01-23 07:20)
DX: M17.12 Unilateral primary osteoarthritis, left knee (principal); I10 Essential (primary) hypertension; Z20.822 Contact with and (suspected) exposure to COVID-19; K21.9 Gastro-esophageal reflux disease without esophagitis; E11.9 Type 2 diabetes mellitus without complications; M79.7 Fibromyalgia
CPT/HCPCS: 36415; 80051; 80053; 82948; 83036; 85025; 85610; 85730; 86885; 86900; 86901; 86920; 87081; 87811; 94640; 94760; 97110; 97116; 97161; 97530; A4615; A4618; A6455; A7000; A9272; C1713; C1758; C1776; G0378; J0131; J0690; J0735; J1100; J1170; J1815; J1885; J2270; J2405; J2704; J2710; J2795; J3010; J3370; J3480; J3490; J7040; J7060; J7120; Q0163

== ENCOUNTER 2022-05-14 10:10 | Emergency (ER) | payer MEDICARE ==
[~2022-05-14] VITALS: Ht 165.1 cm; Wt 100.0 kg
[~2022-05-14 10:10] MED LIST changes: -ASCO1TAB42 PO; -ATOR10TA70 PO; -BETA1TAB18 PO; -CHOL400T57 PO; -CYAN100087 PO; -FIBERWELL PO; -GLIP5TAB13 PO; -LACT1CAP65 PO; -MULT-1085 PO; -ONDA4TAB9 SL; -POWER C PO; -PROM25TA14 PO
[2022-05-14 10:51] VITALS: BP 149/95
[2022-05-14 14:15] LABS: BASOPHILS # (AUTO) 0.1 X10'3 (0-0.2); BASOPHILS % (AUTO) 1.3 % (0-1); EOSINOPHILS # (AUTO) 0.1 X10'3 (0-0.9); EOSINOPHILS % (AUTO) 1.3 % (0-6); HEMATOCRIT 49.3 % (35.0-45.0); HEMOGLOBIN 16.9 g/dl (12.0-16.0); LYMPHOCYTES % (AUTO) 32.7 % (21-51); MEAN CORPUSCULAR HEMOGLOBIN 30.7 PG (27.0-31.0); MEAN CORPUSCULAR HGB CONC 34.2 g/dL (33.0-36.5); MEAN CORPUSCULAR VOLUME 89.7 FL (78-98); MEAN PLATELET VOLUME 8.7 FL (7.4-10.4); MONOCYTES # (AUTO) 0.9 X10'3 (0-0.9); MONOCYTES % (AUTO) 14.6 % (2-12); NEUTROPHILS % (AUTO) 50.1 % (42-75); PLATELET COUNT 299 X10'3 (140-440); RED CELL DISTRIBUTION WIDTH 14.5 % (11.5-14.5)
[2022-05-14 14:22] LABS: ALANINE AMINOTRANSFERASE 38 U/L (12-78); ALBUMIN 4.3 G/DL (3.4-5.0); ALBUMIN/GLOBULIN RATIO 1.2 (1.1-1.5); ALKALINE PHOSPHATASE 83 IU/L (46-116); ANION GAP 16 (8-16); ASPARTATE AMINO TRANSFERASE 29 U/L (10-37); BLOOD UREA NITROGEN 14 MG/DL (7-18); BUN/CREATININE RATIO 14.4 (6.6-38.0); CALCIUM 9.8 MG/DL (8.5-10.1); CHLORIDE 102 MMOL/L (99-107); CREATININE 0.97 MG/DL (0.40-0.90); GLUCOSE 134 MG/DL (70-104); POTASSIUM 3.2 MMOL/L (3.5-5.1); SODIUM 142 MMOL/L (135-145); TOTAL CARBON DIOXIDE 24.2 MMOL/L (24-32); TOTAL PROTEIN 7.8 G/DL (6.4-8.2); eGFR 56 ML/MIN
[2022-05-14] MEDS ORDERED: normal saline 1000ml 1,000 ML IV ONE (14:35)
[2022-05-14] MEDS ORDERED: ondansetron 4mg rapidly disintigrating tab PO ONE (14:35)
[2022-05-14] MEDS ORDERED: potassium Cl 20 mEq SR tablet PO STA (14:46)
[2022-05-14] MEDS ORDERED: ONDA4TAB12 PO ×3 (15:23→16:14)
[2022-05-14] MEDS ORDERED: diphenhydrAMINE 50 mg/ml inj IV ONE (15:35)
[2022-05-14] MEDS ORDERED: proCHLORperazine 10 MG/2 ml inj IV ONE (15:35)
== END 2022-05-14 16:18 | disposition home or self-care (01) ==
LOC: ER 10:10
DX: B34.9 Viral infection, unspecified (principal); Z20.822 Contact with and (suspected) exposure to COVID-19; E87.6 Hypokalemia; R09.81 Nasal congestion; R05.9 Cough, unspecified; Z88.8 Allergy status to other drugs, medicaments and biological substances
CPT/HCPCS: 36415; 80053; 85025; 87502; 87503; 87635; 96361; 96374; 96375; 99284; C9803; J0780; J1200; J7030

== ENCOUNTER 2025-03-18 18:46 | Inpatient (IN) | payer MEDICARE ==
[~2025-03-18] VITALS: Ht 165.1 cm; Wt 101.0 kg
[~2025-03-18 18:46] MED LIST changes: +GLIP5TAB23 PO; +HYDR-3972 PO; +LOSA100T58 PO; -MELA5TAB12 PO; -MIRA50TA PO; +ONDA-243 PO; +PREG100C56 PO; -PREG300C PO; +PROM25TA14 PO; +ROSU20TA98 PO; +TOP25T PO; +VENL37.589
--- NOTE | 2025-03-18 19:22 | ELECTROCARDIOGRAPH REPORT ---
[facility] Test Date: 2025-03-18 Test Time: 19:20:21 Pat Name: ALMAS CARCAMO Department: EMERGENCY ROOM Room: Gender: F Design Eng: : 1950 Requested By: TOLU MEDINA Order Number: [id number] Reading MD: Measurements Intervals [place] Rate: 53 P: 0 WA: 0 QRS: 54 QRSD: 106 T: 53 QT: 631 QTc: 593 Interpretive Statements Atrial fibrillation Low voltage, precordial leads Nonspecific T abnormalities, anterior leads Borderline prolonged QT interval Please click the below link to view image of tracing.
[2025-03-18 21:44] LABS: MEAN PLATELET VOLUME 8.8 FL (7.4-10.4); RED CELL DISTRIBUTION WIDTH 14.0 % (11.5-14.5)
--- NOTE | 2025-03-18 21:51 | RADIOLOGY REPORT ---
CHEST RADIOGRAPH Indication: CP Technique: 1 view Comparison: Chest radiograph 03/01/2025, CTA chest 03/02/2025 FINDINGS: Lines and Tubes: Partially imaged spinal stimulator lead. Lungs/Pleura: Similar bilateral interstitial prominence and patchy left basilar airspace disease. No large pleural effusion or pneumothorax. Cardiomediastinum: Unremarkable. Other: No acute osseous abnormality. IMPRESSION: No significant change from prior exams. Increased interstitial markings with left basilar consolidation.
[2025-03-18 21:58] LABS: CREATININE 4.98 MG/DL (0.40-0.90); TOTAL CARBON DIOXIDE 21.4 MMOL/L (24-32)
[2025-03-18 21:59] LABS: PRO BRAIN NATRIURETIC PEPTIDE 5724 PG/ML (0-450); eCRCL 9 ML/MIN; eGFR 8 ML/MIN
--- NOTE | 2025-03-18 22:17 | Physician Documentation ---
History of Present Illness ~ Chief Complaint: Dizziness Stated Complaint: MULTIPLE MED COMPLAINTS Time Seen by MD: 21:47 Primary Medical Doctor: Magnolia LOPEZ This 74-year-old female presents to the ED with increased shortness of breath, weakness and dizziness. She denies any chest pain but reports a new onset inability to ambulate without getting shortness of breath. Denies any history of atrial fibrillation but she does report having a history of bradycardia. She takes multiple medications this generally poor historian regarding her medical compliance. Denies any chest pain or nausea vomiting Day of Onset: Mar 18, 2025 Medication Reconciliation Allergies: Coded Allergies: thiopental (Verified Allergy, Severe, VIOLENT BEHAVIOR, 03/18/25) Scheduled Amlodipine Besylate (Amlodipine Besylate), 2 TAB PO DAILY, (Reported) Buspirone Hcl* (Buspar*), 5 MG PO BID, (Reported) Glipizide (Glipizide), 1 TAB PO BID, (Reported) Losartan Potassium (Losartan Potassium), 1 TAB PO DAILY, (Reported) Metoprolol Succinate (Metoprolol Succinate), 1 TAB PO DAILY, (Reported) ONDANSETRON ODT 4mg tablet (Ondansetron Odt), 1 TABLET PO TID Omeprazole (Omeprazole), 2 TAB PO DAILY, (Reported) Pregabalin (Pregabalin), 1 CAP PO BID, (Reported) Promethazine HCl (Promethazine HCl), 1 TAB PO BID, (Reported) Propranolol Hcl (Propranolol Hcl), 1 CAP PO DAILY, (Reported) Rosuvastatin Calcium (Rosuvastatin Calcium), 1 TAB PO HS, (Reported) Topiramate (Topiramate), 1 TAB PO BID, (Reported) Scheduled PRN Hydrocodone Bit/Acetaminophen (Hydrocodon-Acetaminophn 10-325 tablet), 1 TAB PO DAILY PRN for pain, (Reported) Miscellaneous Medications Venlafaxine Hcl (Venlafaxine Hcl Er), (Reported) Past Medical History Past Medical History: *MUSCULOSKELETAL*, Fibromyalgia Past Surgical History: noncontributory Alcohol Use: Sober Drug Use: none Lives with: Other Lives In: Home Occupation: unemployed Review of Systems All Other Systems at this time: Reviewed and Negative ROS As stated above in the HPI, otherwise all systems are reviewed and negative. Physical Exam Vital Signs: Temperature: 97.1, Source: Oral, Heart Rate: 71, Respiratory Rate: 18, BP: 97/65, Pulse Oximetry: 96, Weight: 100.000 Physical Exam General: Alert weak appearing Respiratory: Lungs clear, mild respiratory distress Chest: No accessory muscle use. Cardiovascular: Atrial fibrillation, bradycardic and rhythm, no murmurs. Gastrointestinal: Soft, nontender, nondistended. Bowels sounds present. Extremities: Normal range of motion, on 2+ pitting edema BLE Neurologic: Oriented x4. Psychiatric: Normal mood and affect. Skin: Pale color warm and dry Progress Results/Orders Results/Orders Orders - SAI ALFORD MICA INSPECTOR Chest,Single View (03/18/25 21:30) Monitor (03/18/25 21:19) Saline Lock (03/18/25 21:19) Oxygen (03/18/25 21:19) Electrocardiogram (03/18/25 21:19) Hs Troponin I W Calculations (03/18/25 23:19) Hs Troponin I W Calculations (03/19/25 00:19) Page Hospitalist (03/18/25 ) Completed Orders - SAI ALFORD MICA INSPECTOR Chest,Single View (03/18/25 21:30) Cbc/Diff (03/18/25 21:19) BMP (03/18/25 21:19) PBNP (03/18/25 21:19) Hs Troponin I W Calculations (03/18/25 21:19) Vital Signs 03/18/25 03/18/25 19:00 22:30 Temp 97.1 Pulse 71 Resp 18 18 B/P (MAP) 97/65 Pulse Ox 96 Laboratory Tests Test 03/18/25 21:28 03/18/25 23:02 White Blood Count 8.9 Red Blood Count 3.83 L Hemoglobin 12.0 Hematocrit 34.6 L Mean Corpuscular Volume 90.4 Mean Corpuscular Hemoglobin 31.4 H Mean Corpuscular Hemoglobin Concent 34.7 Red Cell Distribution Width 14.0 Platelet Count 284 Mean Platelet Volume 8.8 Neutrophils (%) (Auto) 71.9 Lymphocytes (%) (Auto) 15.8 L Monocytes (%) (Auto) 10.4 Eosinophils (%) (Auto) 1.0 Basophils (%) (Auto) 0.9 Neutrophils # (Auto) 6.4 Lymphocytes # (Auto) 1.4 Monocytes # (Auto) 0.9 Eosinophils # (Auto) 0.1 Basophils # (Auto) 0.1 CBC Comment Sodium Level 142 Potassium Level 4.2 Chloride Level 106 Carbon Dioxide Level 21.4 L Anion Gap 15 Blood Urea Nitrogen 57 H Creatinine 4.98 H Estimated GFR/1.73 m2 8 BUN/Creatinine Ratio 11.4 Glucose Level 173 H Calcium Level 9.0 Troponin I High Sensitivity 11 Pro-B-Type Natriuretic Peptide 5724 H Albumin 4.0 Chemistry Comments Medical Decision Making Findings Patient presents with acute onset rate controlled atrial fibrillation. sHe appears weak and has increased shortness of breath along with moderate hypotension. I do not see the need to pursue critical care, however she does meet criteria for hospital observation and evaluation of her arrhythmia. Consulted with Dr. Francis agreed to see the patient based on her lab values which indicate acute kidney injury. Cardizem and amiodarone or not an option at this time based on her rate and hypotension. Differential Dx:Considerations: Include: anemia, CVA, dehydration, dysrhythmia, electrolyte imbalance, encephalopathy, Guillain-[place], hypoglycemia, hypotension, hypovolemia, labyrinthitis, Meniere's disease, myasathenia gravis, myocardial infarction, pulmonary embolus, renal failure, respiratory failure, TIA, VBI, vertigo central, vertigo peripheral, vestibular neuronitis, other Departure Disposition: 09 ADMITTED INPATIENT Impression: Primary Impression: Dizziness Additional Impressions: Bradyarrhythmia Atrial fibrillation CHF (congestive heart failure) MADELIN (acute kidney injury) Referrals: NO PRIMARY CARE PROVIDER (PCP) Signature Scribe Signature: t Attestation: Scribed for Sai Alford Criminology Teacher by Sai Burks NP . 03/18/25 22:26 SAI ALFORD NP Mar 18, 2025 22:17
[2025-03-18] MEDS ORDERED: AMLO5TAB16 PO (23:00)
[2025-03-18] MEDS ORDERED: TOPI-255 PO (23:00)
[2025-03-18] MEDS ORDERED: INDLA80C PO (23:00)
[2025-03-18] MEDS ORDERED: AMLO10TA13 (23:00)
--- NOTE | 2025-03-18 23:42 | PROGRESS NOTE ---
Progress Note Dictate Providers to CC ~ Progress Note: See dictated note. Probably euvolemic, but prerenal from cardiac disease. I've ordered spot urine studies. No forearm IV's or PICC lines, do bladderscan but place folen only if bladder quite distended. Echocardiogram in AM, CT abd and pelvis s/ contrast, already 2+ edema, so not clear she needs IVF. substantial change from 03/03. Check thyroids, hold AARB and B-macie. Antibiotic Ordered?: No Objective Vitals Vital Signs Date Time Temp Pulse Resp B/P (MAP) Pulse Ox O2 Delivery O2 Flow Rate FiO2 03/18/25 22:30 18 03/18/25 19:00 97.1 71 96 Lab Results: 03/18/25212703/18/252127 CROW NAYAK MD Mar 18, 2025 23:42
[2025-03-18] MEDS ORDERED: magnesium sulf-water 4G/100mL 100 ML IV PRN (23:55)
[2025-03-18] MEDS ORDERED: HYDROmorphone/PF 0.2 MG/ML SYRINGE IV PRN (23:55)
[2025-03-18] MEDS ORDERED: ondansetron/PF 4mg/2ml inj IV PRN (23:55)
[2025-03-18] MEDS ORDERED: magnesium Cl slow-release 64mg tablet PO PRN (23:55)
[2025-03-18] MEDS ORDERED: HYDROmorphone inj. 0.5 MG/0.5 ML DISP.SYRIN IV PRN (23:55)
[2025-03-18] MEDS ORDERED: potassium Cl 20 mEq SR tablet PO PRN ×2 (23:55)
[2025-03-18] MEDS ORDERED: magnesium sulf-water 2g/50mL 50 ML IV PRN (23:55)
[2025-03-18] MEDS ORDERED: potassium Cl 40MEQ/1/2NS 520ml 520 ML IV PRN (23:55)
--- NOTE | 2025-03-19 00:59 | HISTORY AND PHYSICAL-Residence ---
History & Physical Providers to CC Resident Creating Document: PATRICE BALL RES ~ History of Present Illness Primary Medical Doctor: Magnolia Reason for Admit\Complaint: Shortness of the breath History of Present Illness The 74-year-old female with a past medical history of hypertension, diabetes mellitus type 2, bradycardia, irritable bowel syndrome, gastroparesis, chronic headaches fibromyalgia presented to the ER with a chief concern of worsening shortness of breath in the last two weeks. Had shortness of breaths for many months but got worse recently. Mentioned that she feels short of breath even with daily activities like taking a shower and so takes a shower only when she has to go out. Orthopnea present but denies any PND. Has chronic cough for many months now and does not bring up any phlegm. Occasionally feels chest pressure but no chest pain. She feels chest pressure even at rest and she gets it when she walks but not that walking triggers it. Mentioned that she recently had a stress test done in February this year which was normal. Denies any WI or cardiac stenting in the past. Mentioned that she occasionally has low heart rate in 30s and 40s. Also complains of dizziness when she suddenly stands up and when she walks. Denies any falls. Uses a cane to walk around. She also complains of diarrhea since her discharge from recent hospital admission- 03/02/25 to 03/04/25 when she was treated for acute HFpEF and possible community- acquired pneumonia. Was not discharged on Lasix and has been taking lots of fluids lately. Mentioned that she has IBS and has constipation and diarrhea occasionally. But, stated that the diarrhea now is severe. Had about 7-10 episodes of loose watery brown stool since the discharge and mentioned that the diarrhea is improved today but had two episodes since she arrived to the ER. Tried [id number] Imodium which helped initially but is no longer has been with the diarrhea. Had lower abdominal pain few days back but denies any pain now. Had colonoscopy about two years back which showed benign polyps. Denies any blood in stool. Complains of increased frequency of urination but denies any dysuria. She also complains of neck pain that started about two weeks back which was worse even at rest but mentioned that it improved today and is able to comfortably move her neck. Denies any radiation of pain to chest, back, jaw or arm. Denies any nausea or vomiting, fever with chills. Stated that she has been feeling fatigued for the last few days. Mentioned that she has chronic back pain from an accident that happened many years back and has a spine stimulator. Feels that her abdomen is swollen. Has been taking Aleve-one pill and Tylenol daily and took lots of Aleve (six pills in a day) about six months back. Had kidney stones many years back but never got any procedure like ureteral stenting done. Denies any recurrent UTIs but complained of bladder spasms in the past. Had a sleep study a month back and was diagnosed with mild sleep apnea and was not recommended a CPAP. Allergies: Coded Allergies: thiopental (Verified Allergy, Severe, VIOLENT BEHAVIOR, 03/18/25) Home Medications Home Medications Active Ondansetron Odt (Ondansetron HCl) 4 Mg Tab.rapdis 1 Tablet PO TID Reported Amlodipine Besylate 5 Mg Tablet 2 Tab PO DAILY Propranolol Hcl 80 Mg Cap.sa.24h 1 Cap PO DAILY Topiramate 25 Mg Tablet 1 Tab PO BID Pregabalin 100 Mg Capsule 1 Cap PO BID Promethazine HCl 25 Mg Tablet 1 Tab PO BID Glipizide 5 Mg Tablet 1 Tab PO BID Hydrocodon-Acetaminophn 10-325 tablet (Acetaminophen/Hydrocodone Bitart) 10mg- 325mg Tablet 1 Tab PO DAILY PRN Rosuvastatin Calcium 20 Mg Tablet 1 Tab PO HS Losartan Potassium 100 Mg Tablet 1 Tab PO DAILY Venlafaxine Hcl Er (Venlafaxine Hcl) 37.5 Mg Cap.sr.24h Metoprolol Succinate 50 Mg Tab.sr.24h 1 Tab PO DAILY Omeprazole 20 Mg Tablet.dr 2 Tab PO DAILY Buspar* (Buspirone HCl) 5 Mg Tablet 5 Mg PO BID Past Medical History Past Medical History Hypertension, type 2 diabetes mellitus, irritable bowel syndrome, hyperlipidemia, vertigo, fibromyalgia, depression, chronic pain, headaches- migraine, gastroparesis Past Surgical History Surgical History Comment Cholecystectomy, stimulator in the lower back for chronic back pain-about seven years back, 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 Denies smoking tobacco, drinking alcohol or abusing any other recreational drugs ROS ROS Constitutional: Dizziness and weakness present. No fever, chills, weight gain or loss Eyes: No pain, erythema, discharge, blurring of vision ENT: No sore throat, epistaxis, tinnitus Cardiovascular: Episodic chest pressure present. No chest pain, palpitations, syncope, lower extremity edema, paroxysmal nocturnal dyspnea Respiratory: Shortness of breath even at rest and cough present. hemoptysis Gastrointestinal: Diarrhea present. Normal appetite. No nausea, vomiting, constipation, hematemesis, abdominal pain, bloating, melena or fresh blood Genitourinary: Increased urinary frequency. No urgency, nocturia, hematuria or dysuria Musculoskeletal: Neck pain present. No myalgias Integumentary: Lower extremity swelling present. No change in skin, hair, nails. No bruising, abrasions Neurologic: Neck pain present. No headache, numbness or tingling of the extremities, weakness Psychiatric: No delusions, depression, loss of interest in normal activity or change in sleep pattern, hallucinations, suicidal ideations Endocrine: Fatigue present. No weakness, polydipsia, polyuria, change in appetite, heat or cold intolerance, sweating, dry skin Hematological: No bleeding, petechiae, bruising Allergies: No asthma or urticaria Exam Vitals: Vital Signs Date Time Temp Pulse Resp B/P (MAP) Pulse Ox O2 Delivery O2 Flow Rate FiO2 03/18/25 22:30 18 03/18/25 19:00 97.1 71 96 General: Alert and oriented x4 HEENT: Normocephalic and atraumatic. Pupils equal round reactive to light and accommodation. Extraocular movements intact. Oral and nasal mucosa moist Neck: Trachea is in midline. No masses or JVD Chest: Bilateral normal breath sounds. Bilateral crackles present. No rhonchi or wheezes Cardiovascular: Sinus rhythm. Low heart rate. No rubs or murmurs Abdomen: Soft and nontender. Qvjy-ph-qqbveypklj distended. Normoactive bowel sounds Extremities: Bilateral 2+ pedal edema. No cyanosis or clubbing Central Nervous System: No gross sensory or motor deficits. CN II to XII grossly intact. No cerebellar signs Skin: Warm and dry Diagnostic Data Last Recorded Lab Results: 03/19/25 0604 03/19/25 0242 Advance Care Planning Advanced Care plannin - 30 Minutes Additional Plan Acute HFpEF Not requiring any oxygen supplementation Chest x-ray: Hyperinflated, borderline cardiomegaly, bilateral pulmonary vascular congestion ProBNP 5724 now - 2895 in February 2025 Not on Lasix at home. Has been taking lots of fluids lately Complains of orthopnea about is comfortably lying flat in the bed Echocardiogram on 01/28/2025 showed EF 70% Has significantly decreased eGFR-8, and elevated creatinine-4.98 So, avoiding Lasix for now. Might need temporary hemodialysis Looks likely hypervolemic with the pedal edema and crackles ER provider consulted on-call office supervisor-Dr. Tito Francis ordered urine lytes and recommended abdomen/pelvis CT and bladder scan. Also recommended no forearm IVs or PICC line Ordered abdomen/pelvis CT without contrast Echocardiogram ordered Strictly advised nurses to avoid forearm IVs and also to avoid legs as she has pedal edema Continue sodium restricted diet and strict I&Os Symptomatic sinus bradycardia Heart rate in 40s. No GA prolongation or QRS drop Complaints of dizziness - could also be due to hypotension No bilateral carotid bruit Heart rate in 40s Takes metoprolol at home for hypotension Hold metoprolol TSH level ordered Recommend Cardiology consultation if continues to have bradycardia New onset end-stage renal disease Uremia, hyperphosphatemia Has significantly decreased eGFR-8, and elevated creatinine-4.98 On 03/04/2025, creatinine 1.08 and EGFR 49 Denies any urinary retention. States that she has increased urinary frequency Bladder scan ordered Urinalysis ordered to look for any infection Likely requires temporary hemodialysis Avoid NSAIDs, CALI/arbs Phosphorus-6.4. Normal calcium levels Started calcium acetate 667 mg p.o. t.i.d. Renal ultrasound ordered Diarrhea Also has IBS but states that it is different from her usual Ordered C diff toxin No elevated white count and no abdominal tenderness So, did not start any antibiotics Procalcitonin ordered Dizziness Could be from bradycardia or hypotension Hold medications causing bradycardia and drop in blood pressure Orthostatic vitals ordered Hypertension Now has soft blood pressures Hold home medication amlodipine 10 mg daily, losartan 100 mg daily, metoprolol succinate 50 mg daily, propranolol 80 mg p.o. daily Diabetes mellitus type 2 HbA1c on 03/02/2025 and 6.7 Started hyperglycemic/hypoglycemic protocol with Lantus 20 units and low-dose lispro protocol Chronic migraine No acute attack Continue home medication topiramate 25 mg p.o. b.i.d. Gastroparesis Continue home medication promethazine 25 mg p.o. b.i.d. and buspirone 5 mg p.o. b.i.d. Hyperlipidemia Lipid panel ordered Continue home medication rosuvastatin 20 mg p.o. HS DVT prophylaxis: SCDs Diet: Renal diet Patrice Ball MD Internal Medicine Resident, PGY 3 Date of Service: Mar 19, 2025 Billing Provider: ERIN VELASQUEZ MD Addendum Attestation I agree with the residents assessment and plan as below: 74 year old female with hfref admitted with SOB and bradycardia Plan: start diuresis hold beta macie official echo nephrology consult CCT 53 min using HIPPA compliant A/V technology PATRICE BALL RES Mar 19, 2025 00:59 ERIN VELASQUEZ MD Mar 19, 2025 16:33
[2025-03-19 01:13] LABS: PHOSPHORUS 6.4 MG/DL (2.3-4.5)
[2025-03-19 03:12] LABS: APTT 26 SECONDS (22-32); INR 1.1 INR
[2025-03-19 03:16] LABS: CHOL/HDL RATIO 2.9 (0.00-4.99); CREATININE 5.12 MG/DL (0.40-0.90); LDL CHOLESTEROL 59 MG/DL (50-100); PHOSPHORUS 6.4 MG/DL (2.3-4.5); TOTAL CARBON DIOXIDE 21.4 MMOL/L (24-32); eCRCL 8 ML/MIN; eGFR 8 ML/MIN
[2025-03-19] MEDS ORDERED: DEXTROSE 15 GM of carb/4 tabs (each vial/BOTTLE has 4 tablets) PO PRN ×2 (04:05)
[2025-03-19] MEDS ORDERED: glucagon, human recombinant 1mg kit SUBCUT PRN (04:05)
[2025-03-19] MEDS ORDERED: dextrose 50%-water 50ml dispensing syringe IV PRN ×2 (04:05)
--- NOTE | 2025-03-19 05:26 | RADIOLOGY REPORT ---
Exam: CT CT CHEST ABDOMEN PELVIS History: chf, kidney atrphy Comparison Study: CT CTA CHEST PE W/ IV CONTRAST on DOS: 03/02/25, CT ABDOMEN PELVIS on DOS: 05/22/21 Technique: Multidetector spiral CT of the chest, abdomen and pelvis was performed from lower neck to pubic symphysis Axial, coronal and sagittal multiplanar reformats were performed by the technologist on a separate workstation. Radiation Dose : 1. Chest/Abdomen/Pelvis: CTDIvol 23 mGy, DLP 1646 mGy*cm. Findings: Lower neck: Normal thyroid. Lungs: Mild diffuse interlobular septal thickening may represent mild fluid overload. Heart/Vascular Structures: Vascular calcifications of the aorta. Normal heart size. No pericardial effusion. Lymph Nodes: No adenopathy. Pleura: No pleural effusion or significant pneumothorax. Liver: Hepatomegaly. Calcification subcentimeter in the right hepatic dome may be related to prior granulomatous infection or trauma. No focal lesions. Normal hepatic vascular enhancement. Gallbladder and Biliary Tree: Post cholecystectomy. Spleen: Unremarkable. Pancreas: The pancreas is normal in appearance without focal lesions or abnormal enhancement. Adrenal Glands: Unremarkable. Kidneys: Kidneys demonstrate normal symmetric enhancement without focal lesions, calculi or hydronephrosis. Bladder: Unremarkable. Bowel: The stomach is grossly normal in appearance. Moderate volume diffuse colonic stool. Small bowel and colon are normal in caliber and distribution. The appendix is not visualized; however, no secondary findings of acute appendicitis identified. Ascites: Absent. Lymphadenopathy: No mesenteric, retroperitoneal or periportal lymphadenopathy. Abdominal Wall and Mesentery: Unremarkable. Vasculature: The visualized abdominal aorta is normal in size and caliber. Abdominal and pelvic vessels demonstrate normal enhancement. Pelvic Organs: Uterus is surgically absent. Musculoskeletal: Multilevel degenerative changes of the spine. Scoliosis. No aggressive focal bony lesions, acute fractures or dislocation. IMPRESSION: Mild diffuse interlobular septal thickening may represent mild fluid overload. Hepatomegaly. Moderate volume diffuse colonic stool.
[2025-03-19 05:45] VITALS: BP 109/53; PULSE 59; RESP 12; TEMP 97.7; O2SAT 92
[2025-03-19 06:00] VITALS: BP 116/61; PULSE 67; RESP 12; TEMP 98.1; O2SAT 95
[2025-03-19 06:37] LABS: MEAN PLATELET VOLUME 8.9 FL (7.4-10.4); RED CELL DISTRIBUTION WIDTH 13.9 % (11.5-14.5)
[2025-03-19] MEDS: INSULIN LISPRO 100 UNIT/ML INSULN.PEN MULTI-DOSE SQ SCH (07:00)
--- NOTE | 2025-03-19 07:33 | ELECTROCARDIOGRAPH REPORT ---
[facility] Test Date: 2025-03-19 Test Time: 07:31:37 Pat Name: ALMAS CARCAMO Department: [facility] 3S Room: [place] [address] A Gender: F Material Movers: KATY : 1950 Requested By: PATRICE FLORES Order Number: [id number] Reading MD: Dr. Patricia Hancock Measurements Intervals [place] Rate: 61 P: 80 MS: 155 QRS: 83 QRSD: 101 T: 89 QT: 456 QTc: 460 Interpretive Statements Sinus rhythm Borderline right axis deviation Nonspecific T abnormalities, lateral leads Electronically Signed On 03-23-2025 7:07:[address] Patricia Hancock Please click the below link to view image of tracing.
[2025-03-19 08:00] VITALS: RESP 16; O2SAT 98
[2025-03-19] MEDS: PROPRANOLOL HCL 80 MG PO SCH (08:00)
[2025-03-19] MEDS: K and/or MAG REPLACEMENT MC SCH (08:00)
--- NOTE | 2025-03-19 08:41 | RADIOLOGY REPORT ---
INDICATION: Pain; TECHNIQUE: Multiple real-time sonographic images of the kidneys and bladder were obtained. COMPARISON: None FINDINGS: The right kidney measures 12 cm in length, which is normal in size. There is normal echogenicity of the right kidney. No hydronephrosis. The left kidney measures 11 cm in length, which is normal in size. There is normal echogenicity of the left kidney. No hydronephrosis. No large intraluminal masses are seen in the bladder. Prior to voiding the bladder volume measures volume 110 cc. Incidentally seen hepatic steatosis. IMPRESSION: 1. Normal sonographic appearance of the kidneys. No hydronephrosis.
[2025-03-19] MEDS: calcium acetate 667mg (PhosLO) capsule PO SCH (09:01)
[2025-03-19] MEDS: pantoprazole 40mg Tablet.DR PO SCH (09:02)
[2025-03-19 13:26] LABS: LEUKOCYTE ESTERASE ,URINE SMALL (Neg); NITRITES, URINE NEGATIVE (Neg); OCCULT BLOOD,URINE NEGATIVE (Neg)
[2025-03-19 13:32] LABS: UA COLLECTION TYPE NON-SPECIFIED
[2025-03-19] MEDS: normal saline 1000ml 1,000 ML IV SCH (13:34)
[2025-03-19 13:36] LABS: SQUAMOUS EPITHELIAL CELL,UR MANY /LPF (FEW)
[2025-03-19 13:37] LABS: MUCUS STRANDS NONE SEEN /LPF (Neg)
[2025-03-19 14:21] LABS: CREATININE,URINE RANDOM 260.0 MG/DL; TOTAL PROTEIN,URINE RANDOM 79.9 MG/DL
--- NOTE | 2025-03-19 14:49 | ELECTROCARDIOGRAPH REPORT ---
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
[2025-03-19 15:00] VITALS: BP 121/58; PULSE 66; RESP 18; TEMP 97.8; O2SAT 96
--- NOTE | 2025-03-19 18:12 | PROGRESS NOTE ---
Daily Progress Note Providers to CC ~ Antibiotic Timeout Antibiotic Ordered?: Yes Subjective Patient was seen in presence of her daughter today she was telling me all kinds of medical issues unable to pinpoint what was really the need to come to the hospital. He is not very good historian. Patient was evaluated by Nephrology team for acute renal failure. Was recently discharged on March 04, 2025 from the hospital Objective Vital Signs Date Time Temp Pulse Resp B/P (MAP) Pulse Ox O2 Delivery O2 Flow Rate FiO2 03/19/25 15:00 97.8 66 18 121/58 (79) 96 Room Air Result Diagram: 03/19/25 0604 03/19/25 0242 General-patient not in any acute distress, alert awake oriented, obese, age- appropriate, looks comfortable HEENT-atraumatic normocephalic, neck supple without elevated JVD, no thyromegaly or carotid bruit. No lymphadenopathy bilaterally. Eyes-no icterus or pallor seen in eyes Chest-clear to auscultation bilaterally, breathing nonlabored no tachypnea, no wheezing, no crepitation, no crackles. Heart-S1-S2 normal, regular heart rate no murmur Abdomen bowel sounds positive on auscultation, soft nondistended nontender no guarding, no rigidity Skin no active skin rash Neurology-grossly intact, nonfocal alert awake oriented Extremity- no pedal edema able to move all 4 extremities Psychiatry - patient is not confused or agitated cooperated during physical examination Coagulation Studies Laboratory Tests Test 03/19/25 02:42 Prothrombin Time 11.4 SECONDS (9.0-12.0) INR International Normalized Ratio 1.1 INR Activated Partial Thromboplast Time 26 SECONDS (22-32) Coagulation Comments Problem\Assessment\Plan Acute on chronic HFpEF Not requiring any oxygen supplementation Chest x-ray: Hyperinflated, borderline cardiomegaly, bilateral pulmonary vascular congestion ProBNP 5724 now - 2895 in February 2025 Echocardiogram on 01/28/2025 showed EF 70% Symptomatic sinus bradycardia-resolved Hold metoprolol TSH 4.14 New onset end-stage renal disease Uremia, hyperphosphatemia Has significantly decreased eGFR-8, and elevated creatinine-4.98 On 03/04/2025, creatinine 1.08 and EGFR 49 Urinalysis reviewed Avoid NSAIDs, CALI/arbs Phosphorus-6.4. Normal calcium levels Started calcium acetate 667 mg p.o. t.i.d. Renal ultrasound ordered ER provider consulted on-call manager film-Dr. Tito Francis ordered urine lytes and recommended abdomen/pelvis CT and bladder scan. Also recommended no forearm IVs or PICC line Ordered abdomen/pelvis CT without contrast. Strictly advised nurses to avoid forearm IVs and also to avoid legs as she has pedal edema Continue sodium restricted diet and strict I&Os Diarrhea Also has IBS but states that it is different from her usual C diff toxin testing pending Procalcitonin normal Dizziness Could be from bradycardia or hypotension will Hold medications causing bradycardia and drop in blood pressure Orthostatic vitals ordered Hypertension will Hold home medication amlodipine 10 mg daily, losartan 100 mg daily, metoprolol succinate 50 mg daily, propranolol 80 mg p.o. daily Diabetes mellitus type 2 HbA1c on 03/02/2025 and 6.7 Started hyperglycemic/hypoglycemic protocol with Lantus 20 units and low-dose lispro protocol Chronic migraine No acute attack Continue home medication topiramate 25 mg p.o. b.i.d. Gastroparesis on home medication promethazine 25 mg p.o. b.i.d. and buspirone 5 mg p.o. b.i.d. Hyperlipidemia Lipid panel ordered Continue home medication rosuvastatin 20 mg p.o. HS DVT prophylaxis: SCDs Diet: Renal diet Condition is guarded we will continue to follow patient in AM Date of Service: Mar 19, 2025 Billing Provider: MANUEL YAN MD Common Visit Codes: [id number] INP/OBS CARE(HIGH) MANUEL YAN MD Mar 19, 2025 18:12
--- NOTE | 2025-03-19 18:45 | CARDIOLOGY REPORT ---
APPROVED REPORT EXAM: Limited 2D, Doppler, and color-flow Echocardiogram. Patient Location: 302 Blood Pressure: 109/53 mmHg Heart Rate: 63 bpm Indications Congestive Heart Failure Shortness of Breath Weakness ProBNP: 5724 MANAGER SALES: Josefa Hancock MD Previous ECHO: 01/28/25, [facility], EF: 70 2D Dimensions LA Diam 3.8 cm IVSd 1.0 (0.7-1.1cm) LVDd 4.2 cm PWd 1.1 (0.7-1.1cm) IVSs 1.4 (0.8-1.2cm) LVDs 2.6 (2.5-4.0cm) PWs 1.4 (0.8-1.2cm) LVEF(%) 67.9 (>50%) IVC 18.56 mm FS (%) 37.5 % SV 52.5 ml CO 3.3 L/min Aortic Valve AoV Peak Andrew. 211.4 cm/s AO Peak GR. 17.9 mmHg Tricuspid Valve TR P. Velocity 347 cm/s RAP ESTIMATE 10 mmHg TR Peak Gr. 48 mmHg RVSP 58 mmHg LEFT VENTRICLE Normal LV size and wall thickness. Overall systolic function is normal. LVEF is 70%. Unchanged from previous echo. RIGHT VENTRICLE Right ventricle is mildly dilated with normal function. Elevated right heart pressures with an RVSP of 58 mmHg. ATRIA The left atrium size is normal. AORTIC VALVE Trileaflet AV appears mildy sclerotic without stenosis. No insufficiency. AV not fully evaluated due to limited exam. MITRAL VALVE Mild mitral annular calcification without stenosis. Mild regurgitation. AV not fully evaluated due to limited exam. TRICUSPID VALVE The tricuspid valve is normal in structure with mild regurgitation. PULMONIC VALVE Pulmonic valve is grossly normal in structure. GREAT VESSELS The aortic root is normal in size. IVC is normal in size. PERICARDIUM Normal pericardium. No effusion. Other Information Study Quality: Adequate Conclusion Normal LV size and wall thickness. Overall systolic function is normal. LVEF is 70%. Unchanged from previous echo. Right ventricle is mildly dilated with normal function. Elevated right heart pressures with an RVSP of 58 mmHg. The left atrium size is normal. Trileaflet AV appears mildy sclerotic without stenosis. No insufficiency. AV not fully evaluated due to limited exam. Mild mitral annular calcification without stenosis. Mild regurgitation. AV not fully evaluated due to limited exam. The tricuspid valve is normal in structure with mild regurgitation. Normal pericardium. No effusion.
--- NOTE | 2025-03-19 18:51 | RADIOLOGY REPORT ---
Procedure: [facility] RENALS Exam Date: 03/19/2025 01:55 PM. Clinical History: ACUTE RENAL FAILURE Comparison Study: VASC VL RENAL on DOS: 03/19/25, US ULTRASOUND KIDNEY NON VASC on DOS: 03/19/25, CT ABDOMEN PELVIS on DOS: 05/22/21 Nuclear Medicine Renal Scan Technique: Following the intravenous administration of 8 mCi of technetium 99m labeled MAG-3 , flow images were acquired in one second intervals. This was followed by functional imaging of the kidneys in the posterior projection which were obtained at 20 seconds intervals reconstructed into 2 minute frames for a total of 34 minutes. Flow curves and functional renogram curves were generated. Split function data were generated from the first three minutes of the study. Findings: The flow study reveals prompt visualization of both kidneys with normal flow bilaterally. The kidneys are normal size, location and contour. Accumulation of radiotracer within both kidneys with minimal excretion into nondistended collecting systems. The functional data was obtained with the renal pelvis included in the region of interest: Left: Peak time on the left is 28.2 minutes. Peak to 1/2 peak on the left is 10.5 minutes. Right: Peak time on the right is 26.2 minutes. Peak to 1/2 peak on the right is 21.7 minutes. Diuretic T 1/2 on the right is 20.8 minutes. Split function is 50 % on the left and 50 % on the right. IMPRESSION: Delayed time to peak bilaterally with minimal excretion of radiotracer into the collecting systems which is supportive of acute renal failure. Symmetric renal function with both kidneys responsible for 50% of total renal function.
--- NOTE | 2025-03-19 19:08 | VASCULAR REPORT ---
EXAM: VASC VL RENAL INDICATION: Concern for stenosis TECHNIQUE: Duplex Doppler evaluation of the right and left renal vessels including color Doppler and spectral/pulsed waveform analysis was performed. COMPARISON: NM NM RENALS on DOS: 03/19/25 FINDINGS: AORTA: The peak systolic velocity in the abdominal aorta is 153 cm/s at the level of the renal arteries. RIGHT: The right kidney measures 13.1 cm in length. Intra-renal resistive indices range from 0.8. The intra-renal waveforms are normal with appropriate diastolic flow. The renal artery peak systolic velocities not visualized at the proximal, 82 cm/s at mid-portion, 92 cm/s at distal portion. The right renal artery-aortic ratio is 0.6. LEFT: The left kidney measures 12.4 cm in length. Intra-renal resistive indices range from 0.9. The intra-renal waveforms are normal with appropriate diastolic flow. The renal artery peak systolic velocities are nonvisualized at the proximal, 127 cm/s at midportion, 111 cm/s at distal portion, and 58 cm/s at the origin. The left renal artery-aortic ratio is 0.8. OTHER: None IMPRESSION: 1. No evidence of hemodynamically significant renal artery stenosis by Doppler parameters. Normal intrarenal waveforms bilaterally.
--- NOTE | 2025-03-19 19:17 | CONSULTATION REPORT - RESIDENT ---
Consult Providers to CC Resident Creating Document: ALISON HINDS RES History of Present Illness Reason for Admit\Complaint: MADELIN History of Present Illness This is a 74-year-old female with history of hypertension, type 2 diabetes mellitus, gastroparesis, bradycardia, irritable bowel syndrome came to the ER with a chief complaint of shortness of breadth, associated with orthopnea, was admitted and being managed for acute heart failure with preserved ejection fraction. Nephrology team has been consulted for acute kidney injury. Her creatinine at this admission is 5.12, creatinine in 03/04/2025 was 1.08. She denies any difficulty in urinating. Also denies any acute event in the past one month. She uses Aleve and naproxen previously, previously used up to four tablets a day of each. Only change in medication was metoprolol which was initially started for blood pressure, later discontinued because of bradycardia. She had kidney stones in the past, was told to decrease the vitamin C and citrate intake at the time. Renal ultrasound and CT abdomen showed normal findings of the kidney Renal NM scan showed minimal excretion of radiotracer into the collecting system, see med rec renal function with both kidneys responsible for 50% of total renal function. Allergies: Coded Allergies: thiopental (Verified Allergy, Severe, VIOLENT BEHAVIOR, 03/18/25) Home Medications Home Medications Active Ondansetron Odt (Ondansetron HCl) 4 Mg Tab.rapdis 1 Tablet PO TID Reported Amlodipine Besylate 5 Mg Tablet 2 Tab PO DAILY Propranolol Hcl 80 Mg Cap.sa.24h 1 Cap PO DAILY Topiramate 25 Mg Tablet 1 Tab PO BID Pregabalin 100 Mg Capsule 1 Cap PO BID Promethazine HCl 25 Mg Tablet 1 Tab PO BID Glipizide 5 Mg Tablet 1 Tab PO BID Hydrocodon-Acetaminophn 10-325 tablet (Acetaminophen/Hydrocodone Bitart) 10mg- 325mg Tablet 1 Tab PO DAILY PRN Rosuvastatin Calcium 20 Mg Tablet 1 Tab PO HS Losartan Potassium 100 Mg Tablet 1 Tab PO DAILY Venlafaxine Hcl Er (Venlafaxine Hcl) 37.5 Mg Cap.sr.24h Metoprolol Succinate 50 Mg Tab.sr.24h 1 Tab PO DAILY Omeprazole 20 Mg Tablet.dr 2 Tab PO DAILY Buspar* (Buspirone HCl) 5 Mg Tablet 5 Mg PO BID Past Medical History Past Medical History Hypertension, type 2 diabetes mellitus, irritable bowel syndrome, hyperlipidemia, vertigo, fibromyalgia, depression, chronic pain, headaches- migraine, gastroparesis Past Surgical History Surgical History Comment Cholecystectomy, stimulator in the lower back for chronic back pain-about seven years back, 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 Denies smoking tobacco, drinking alcohol or abusing any other recreational drugs Exam Vitals: Vital Signs Date Time Temp Pulse Resp B/P (MAP) Pulse Ox O2 Delivery O2 Flow Rate FiO2 03/19/25 15:00 97.8 66 18 121/58 (79) 96 Room Air General: General: Alert and oriented x4 HEENT: Normocephalic and atraumatic. Pupils equal round reactive to light and accommodation. Extraocular movements intact. Oral and nasal mucosa moist Neck: Trachea is in midline. No masses or JVD Chest: Bilateral normal breath sounds. No rhonchi or wheezes Cardiovascular: Sinus rhythm. Low heart rate. No rubs or murmurs Abdomen: Soft and nontender. Ylyx-br-cbhoantdev distended. Normoactive bowel sounds Extremities: Bilateral 2+ pedal edema. No cyanosis or clubbing Central Nervous System: No gross sensory or motor deficits. CN II to XII grossly intact. No cerebellar signs Skin: Warm and dry Diagnostic Data Last Recorded Lab Results: 03/19/25 0604 03/19/25 0242 Diagnostic Data: Laboratory Tests Test 03/19/25 02:42 Prothrombin Time 11.4 SECONDS (9.0-12.0) INR International Normalized Ratio 1.1 INR Activated Partial Thromboplast Time 26 SECONDS (22-32) Coagulation Comments Additional Plan Assessment This is a 74-year-old female with history of hypertension, type 2 diabetes mellitus, gastroparesis, bradycardia, irritable bowel syndrome came to the ER with a chief complaint of shortness of breadth, associated with orthopnea, was admitted and being managed for acute heart failure with preserved ejection fraction. Nephrology team has been consulted for acute kidney injury. Her creatinine at this admission is 5.12, creatinine in 03/04/2025 was 1.08. She denies any difficulty in urinating. Also denies any acute event in the past one month. She uses Aleve and naproxen previously, previously used up to four tablets a day of each. Only change in medication was metoprolol which was initially started for blood pressure, later discontinued because of bradycardia. She had kidney stones in the past, was told to decrease the vitamin C and citrate intake at the time. Plan Acute kidney injury, cause under evaluation New onset end-stage renal disease Hyperphosphatemia, uremia Labs showed creatinine at the time of admission 4.9 night, elevated to 5.12 Baseline creatinine in 03/04/2025 was 1.08 BUN 61, BUN/creatinine 11.9 Electrolytes showed normal potassium, low bicarb, 21.4, high phosphorus, 6.4 Urine electrolytes showed, urine sodium< 15, FeNa 0.2% Renal ultrasound and CT abdomen showed normal findings of the kidney Renal NM scan showed minimal excretion of radiotracer into the collecting system, see med rec renal function with both kidneys responsible for 50% of total renal function. Plan Follow up with 24 hour urine creatinine, protein, urea Follow up with daily urine spot studies NS@ 125 mL/hour Pending renal Doppler Strict I&Os Renal diet No forearm IV, no PICC line, no Matos's UTI Urine analysis positive for infection Pending urine cultures. Acute heart failure with preserved ejection fraction Symptomatic bradycardia Elevated proBNP Echocardiogram showed an ejection fraction of 70% Metoprolol held. Hypertension Diabetes mellitus Hyperlipidemia Blood pressure in the normal range A1c 6.7, On Lantus 20 units On rosuvastatin 20 mg Sepsis Screening Reassessment Date: Mar 19, 2025 Vitals Signs Review Sensitivity to metoprolol raises the question of RA stenosis, but also had bradycardia and hypotension. Consider RA doppler and nuclear renal scan. Date of Service: Mar 19, 2025 Billing Provider: CROW NAYAK MD, PRAVAHIKA, RES Mar 19, 2025 19:17 CROW NAYAK MD Mar 19, 2025 19:53
[2025-03-19 20:00] VITALS: RESP 15; O2SAT 92
[2025-03-19] MEDS: insulin glargine (Lantus) pen - multi-dose SQ SCH (21:00)
[2025-03-19 22:00] VITALS: BP 141/60; PULSE 82; RESP 15; TEMP 97.8; O2SAT 92
[2025-03-20] VITALS (11 sets, daily range): BP systolic 124–150; BP diastolic 48–63; PULSE 87–96; RESP 13–21; TEMP 97.7–98.2; O2SAT 92–95
[2025-03-20] MEDS: insulin glargine (Lantus) pen - multi-dose SQ ONE (00:32)
[2025-03-20 07:35] LABS: MEAN PLATELET VOLUME 8.6 FL (7.4-10.4); RED CELL DISTRIBUTION WIDTH 13.7 % (11.5-14.5)
[2025-03-20 07:45] LABS: APTT 28 SECONDS (22-32); INR 1.1 INR
[2025-03-20 08:08] LABS: CREATININE 4.39 MG/DL (0.40-0.90); PHOSPHORUS 4.8 MG/DL (2.3-4.5); TOTAL CARBON DIOXIDE 21.7 MMOL/L (24-32); eCRCL 10 ML/MIN; eGFR 10 ML/MIN
--- NOTE | 2025-03-20 12:41 | PROGRESS NOTE- Residence ---
Progress Note - Resident Providers to CC Resident Creating Document: ALISON GARCIA RES ~ Antibiotic Timeout Antibiotic Ordered?: No Subjective Patient was seen and examined at the bedside today. The I&O monitoring is inappropriate. Recommended strict I&O monitoring even during the night. The kidney function continues to get better. We will follow up with 24 hour urine electrolytes. Objective Vital Signs Date Time Temp Pulse Resp B/P (MAP) Pulse Ox O2 Delivery O2 Flow Rate FiO2 03/20/25 10:46 20 92 Nasal Cannula 2.0 03/20/25 09:39 92 150/63 (92) 03/20/25 06:00 98.2 Result Diagram: 03/20/2565103/20/25651 General: Alert and oriented x4 HEENT: Normocephalic and atraumatic. Pupils equal round reactive to light and accommodation. Extraocular movements intact. Oral and nasal mucosa moist Neck: Trachea is in midline. No masses or JVD Chest: Bilateral normal breath sounds. No rhonchi or wheezes Cardiovascular: Sinus rhythm. Low heart rate. No rubs or murmurs Abdomen: Soft and nontender. Ttdw-yx-jgrpoolkzg distended. Normoactive bowel sounds Extremities: Bilateral 2+ pedal edema. No cyanosis or clubbing Central Nervous System: No gross sensory or motor deficits. CN II to XII grossly intact. No cerebellar signs Skin: Warm and dry Coagulation Studies Laboratory Tests Test 03/20/25 06:35 Prothrombin Time 11.3 SECONDS (9.0-12.0) INR International Normalized Ratio 1.1 INR Activated Partial Thromboplast Time 28 SECONDS (22-32) Coagulation Comments Assessment Assessment This is a very nice lady. We are seeing some gradual improvement in renal function,, question due to hydration or some resolution of ATN from the kidneys taking a hit when she dropped her cardiac output with the labetalol. We will continue to watch. Plan Plan Assessment This is a 74-year-old female with history of hypertension, type 2 diabetes mellitus, gastroparesis, bradycardia, irritable bowel syndrome came to the ER with a chief complaint of shortness of breadth, associated with orthopnea, was admitted and being managed for acute heart failure with preserved ejection fraction. Nephrology team has been consulted for acute kidney injury. Her creatinine at this admission is 5.12, creatinine in 03/04/2025 was 1.08. She denies any difficulty in urinating. Also denies any acute event in the past one month. She uses Aleve and naproxen previously, previously used up to four tablets a day of each. Only change in medication was metoprolol which was initially started for blood pressure, later discontinued because of bradycardia. She had kidney stones in the past, was told to decrease the vitamin C and citrate intake at the time. Plan Acute kidney injury, cause under evaluation New onset end-stage renal disease Hyperphosphatemia, uremia Creatinine improved to 4.39 today from 5.12 yesterday Baseline creatinine in 03/04/2025 was 1.08 BUN 61, BUN/creatinine 13.9 Electrolytes showed normal potassium, low bicarb, 21.4, high phosphorus, 4.8 Urine electrolytes showed, urine sodium< 15, FeNa 0.2% Renal ultrasound and CT abdomen showed normal findings of the kidney Renal vascular ultrasound showed no hemodynamically significant stenosis. Renal NM scan showed minimal excretion of radiotracer into the collecting system, see med rec renal function with both kidneys responsible for 50% of total renal function. Plan Follow up with 24 hour urine creatinine, protein, urea Follow up with daily urine spot studies Continue NS@ 125 mL/hour Strict I&Os Renal diet No forearm IV, no PICC line, no Matos's UTI Urine analysis positive for infection Pending urine cultures. Acute heart failure with preserved ejection fraction Symptomatic bradycardia Elevated proBNP Echocardiogram showed an ejection fraction of 70% Metoprolol held. Hypertension Diabetes mellitus Hyperlipidemia Blood pressure in the normal range A1c 6.7, On Lantus 20 units On rosuvastatin 20 mg P{vladimir garcia M.D PGY2 Nephrology Resident. Date of Service: Mar 20, 2025 Billing Provider: CROW NAYAK MD, PRAVAHIKA, RES Mar 20, 2025 12:41 CROW NAYAK MD Mar 20, 2025 16:40
[2025-03-20] MEDS: PROPRANOLOL HCL 80 MG PO SCH (16:30)
--- NOTE | 2025-03-20 16:53 | ELECTROCARDIOGRAPH REPORT ---
[facility] Test Date: 2025-03-20 Test Time: 16:51:52 Pat Name: ALMAS CARCAMO Department: [facility] 3S Patient ID: [id number] Room: [place] [address] A Gender: F [employer] Faculty Member: : 1950 Requested By: MANUEL YAN Order Number: [id number] Reading MD: Measurements Intervals [place] Rate: 98 P: 73 TX: 143 QRS: 62 QRSD: 93 T: -87 QT: 364 QTc: 465 Interpretive Statements Sinus rhythm Borderline repolarization abnormality Please click the below link to view image of tracing.
[2025-03-20] MEDS: morphine 4 MG/ML inj SYRINge IV PRN (17:53)
--- NOTE | 2025-03-20 20:35 | PROGRESS NOTE ---
Daily Progress Note Providers to CC ~ Antibiotic Timeout Antibiotic Ordered?: No Subjective Patient was seen in moaning she was feeling better but later in the evening she started complaining about chest pain troponins was unremarkable , EKG showed nonspecific ST-T wave changes. Medication reconciliation done for patient's home medication. Antihypertensive medication started and discussed with nursing staff. Objective Vital Signs Date Time Temp Pulse Resp B/P (MAP) Pulse Ox O2 Delivery O2 Flow Rate FiO2 03/20/25 15:00 98.1 92 21 141/57 (85) 95 Nasal Cannula 2.0 Result Diagram: 03/20/2552 03/20/25651 General-patient not in any acute distress, alert awake oriented, obese, age- appropriate, looks comfortable HEENT-atraumatic normocephalic, neck supple without elevated JVD, no thyromegaly or carotid bruit. No lymphadenopathy bilaterally. Eyes-no icterus or pallor seen in eyes Chest-clear to auscultation bilaterally, breathing nonlabored no tachypnea, no wheezing, no crepitation, no crackles. Heart-S1-S2 normal, regular heart rate no murmur Abdomen bowel sounds positive on auscultation, soft nondistended nontender no guarding, no rigidity Skin no active skin rash Neurology-grossly intact, nonfocal alert awake oriented Extremity- no pedal edema able to move all 4 extremities Psychiatry - patient is not confused or agitated cooperated during physical examination Coagulation Studies Laboratory Tests Test 03/20/25 06:35 Prothrombin Time 11.3 SECONDS (9.0-12.0) INR International Normalized Ratio 1.1 INR Activated Partial Thromboplast Time 28 SECONDS (22-32) Coagulation Comments Problem\Assessment\Plan Acute on chronic HFpEF Not requiring any oxygen supplementation Chest x-ray: Hyperinflated, borderline cardiomegaly, bilateral pulmonary vascular congestion ProBNP 5724 now - 2895 in February 2025 Echocardiogram on 01/28/2025 showed EF 70% Symptomatic sinus bradycardia-resolved Hold metoprolol TSH 4.14 New onset end-stage renal disease Uremia, hyperphosphatemia Has significantly decreased eGFR-8, and elevated creatinine-4.98 On 03/04/2025, creatinine 1.08 and EGFR 49 Urinalysis reviewed Avoid NSAIDs, CALI/arbs Phosphorus-6.4. Normal calcium levels Started calcium acetate 667 mg p.o. t.i.d. Renal ultrasound ordered ER provider consulted on-call project management specialist-Dr. Tito Francis ordered urine lytes and recommended abdomen/pelvis CT and bladder scan. Also recommended no forearm IVs or PICC line Ordered abdomen/pelvis CT without contrast. Strictly advised nurses to avoid forearm IVs and also to avoid legs as she has pedal edema Continue sodium restricted diet and strict I&Os Diarrhea Also has IBS but states that it is different from her usual C diff toxin testing pending Procalcitonin normal Dizziness Could be from bradycardia or hypotension will Hold medications causing bradycardia and drop in blood pressure Orthostatic vitals ordered Hypertension will Hold home medication losartan 100 mg daily, metoprolol succinate 50 mg daily, propranolol 80 mg p.o. daily Patient is started today on amlodipine and hydralazine Diabetes mellitus type 2 HbA1c on 03/02/2025 and 6.7 Started hyperglycemic/hypoglycemic protocol with Lantus 20 units and low-dose lispro protocol Chronic migraine No acute attack Continue home medication topiramate 25 mg p.o. b.i.d. Gastroparesis on home medication promethazine 25 mg p.o. b.i.d. and buspirone 5 mg p.o. b.i.d. Hyperlipidemia Lipid panel ordered Continue home medication rosuvastatin 20 mg p.o. HS DVT prophylaxis: SCDs Diet: Renal diet Condition is guarded we will continue to follow patient in AM Date of Service: Mar 20, 2025 Billing Provider: MANUEL YAN MD Common Visit Codes: [id number] INP/OBS CARE(HIGH) MANUEL YAN MD Mar 20, 2025 20:35
[2025-03-20 22:55] LABS: TOTAL VOLUME 24HRS,URINE 1100.0 ML
[2025-03-20 22:56] LABS: TOTAL PROTEIN 24HR,URINE 223.3 MG/24HR (28-141); UREA NITROGEN 24HR,URINE 6.8 GM/24HR (7-20)
[2025-03-21] VITALS (9 sets, daily range): BP systolic 106–152; BP diastolic 40–59; PULSE 77–88; RESP 11–22; TEMP 97–97.9; O2SAT 90–93
[2025-03-21 06:50] LABS: APTT 31 SECONDS (22-32); INR 1.1 INR
[2025-03-21 06:51] LABS: MEAN PLATELET VOLUME 8.8 FL (7.4-10.4); RED CELL DISTRIBUTION WIDTH 13.9 % (11.5-14.5)
[2025-03-21 07:04] LABS: CREATININE 3.38 MG/DL (0.40-0.90); PHOSPHORUS 4.7 MG/DL (2.3-4.5); TOTAL CARBON DIOXIDE 22.3 MMOL/L (24-32); eCRCL 13 ML/MIN; eGFR 13 ML/MIN
--- NOTE | 2025-03-21 11:04 | PROGRESS NOTE ---
Progress Note Dictate Providers to CC ~ Progress Note: Nasreen seems fairly comfortable. Lungs are clear but chest x-ray shows prominent earl supported with pulmonary hypertension of 58 systolic. BUN and creatinine continue to improve. Urine sodium was less than 15 with potassium 55 indicating prerenal state plus excellent aldosterone site function. She had 50-100 white cells. Blood cultures are negative but I would recommend a urine culture. CT shows two fairly small kidneys with a irregularity suggesting chronic disease. On the other hand urinalysis has no proteinuria. 24 hour creatinine is 1375, remarkably high for a lady this age, but this is as creatinine is coming down so she is excreting more. The nuclear scan is compatible with ATN with early perfusion but then progressive accumulation of contrast rather than excretion. Creatinine clearance is 1375 over 3.8 x 14 40 equals 25 mL/minute. 24 hour urea nitrogen is 6.8 g so urea clearance is 6800/52 times 14 40 equals 9 mL/min. Urea clearance is therefore 0.36, suggesting fairly good perfusion. Looking at the nuclear scan in the pulmonary hypertension, I suspect she will be left with abnormal kidney function but nowhere close to dialysis. Antibiotic Ordered?: No Objective Vitals Vital Signs Date Time Temp Pulse Resp B/P (MAP) Pulse Ox O2 Delivery O2 Flow Rate FiO2 03/21/25 08:00 82 03/21/25 08:00 22 90 Nasal Cannula 2.0 03/21/25 06:00 97.4 152/57 (88) Lab Results: 03/21/25 0604 03/21/25 0604 Coagulation Studies Laboratory Tests Test 03/21/25 06:04 Prothrombin Time 11.4 SECONDS (9.0-12.0) INR International Normalized Ratio 1.1 INR Activated Partial Thromboplast Time 31 SECONDS (22-32) Coagulation Comments CROW NAYAK MD Mar 21, 2025 11:04
--- NOTE | 2025-03-21 11:45 | RADIOLOGY REPORT ---
CHEST RADIOGRAPH Indication: monitor changes , suspected Pleural effusion Technique: Single frontal view of the chest was obtained COMPARISON: CT CT CHEST ABDOMEN PELVIS on DOS: 03/19/25, DI CHEST,SINGLE VIEW on DOS: 03/18/25, CT CTA CHEST PE W/ IV CONTRAST on DOS: 03/02/25, DI CHEST,SINGLE VIEW on DOS: 03/01/25, DI CHEST,SINGLE VIEW on DOS: 01/27/25 FINDINGS: Lines and Tubes: None Lungs: Patchy airspace opacities left mid. Pleura: No effusion. No pneumothorax. Cardiomediastinal contours: Unremarkable Bones: Unremarkable IMPRESSION: 1. Patchy airspace opacities left midlung.
[2025-03-21 11:47] LABS: CREATININE,URINE RANDOM 113.0 MG/DL; UA UREA RANDOM 711.0 MG/DL
[2025-03-21 12:06] LABS: OSMOLALITY UA 402.0 MOSM/K (50-1400)
--- NOTE | 2025-03-21 19:53 | PROGRESS NOTE ---
Daily Progress Note Providers to CC ~ Antibiotic Timeout Antibiotic Ordered?: No Subjective Was seen in her room she was desaturating on current O2, x-ray chest and ABG ordered. Stopped IV fluid by Nephrology specialist Dr. Francis and he ordered IV Lasix . Continue to monitor patient closely. Objective Vital Signs Date Time Temp Pulse Resp B/P (MAP) Pulse Ox O2 Delivery O2 Flow Rate FiO2 03/21/25 15:00 97.3 77 22 139/59 (85) 91 Nasal Cannula 2.0 Result Diagram: 03/21/2560303/21/25603 General-patient not in any acute distress, alert awake oriented, obese, age- appropriate, looks comfortable HEENT-atraumatic normocephalic, neck supple without elevated JVD, no thyromegaly or carotid bruit. No lymphadenopathy bilaterally. Eyes-no icterus or pallor seen in eyes Chest-coarse breath sounds present to auscultation bilaterally associated with lung crackles, breathing nonlabored no tachypnea, Heart-S1-S2 normal, regular heart rate no murmur Abdomen bowel sounds positive on auscultation, soft nondistended nontender no guarding, no rigidity Skin no active skin rash Neurology-grossly intact, nonfocal alert awake oriented Extremity- no pedal edema able to move all 4 extremities Psychiatry - patient is not confused or agitated cooperated during physical examination Coagulation Studies Laboratory Tests Test 03/21/25 06:04 Prothrombin Time 11.4 SECONDS (9.0-12.0) INR International Normalized Ratio 1.1 INR Activated Partial Thromboplast Time 31 SECONDS (22-32) Coagulation Comments Problem\Assessment\Plan Acute on chronic HFpEF Not requiring any oxygen supplementation Chest x-ray: Hyperinflated, borderline cardiomegaly, bilateral pulmonary vascular congestion ProBNP 5724 now - 2895 in February 2025 Echocardiogram on 01/28/2025 showed EF 70% Repeat BNP ordered Symptomatic sinus bradycardia-resolved Hold metoprolol TSH 4.14 New onset end-stage renal disease Uremia, hyperphosphatemia Has significantly decreased eGFR-8, and elevated creatinine-4.98 On 03/04/2025, creatinine 1.08 and EGFR 49 Urinalysis reviewed Avoid NSAIDs, CALI/arbs Phosphorus-6.4. Normal calcium levels Started calcium acetate 667 mg p.o. t.i.d. Renal ultrasound done ER provider consulted on-call belt builder helper-Dr. Francis and he is following the patient Dr. Francis ordered urine lytes and recommended abdomen/pelvis CT and bladder scan. Also recommended no forearm IVs or PICC line Ordered abdomen/pelvis CT without contrast. Strictly advised nurses to avoid forearm IVs and also to avoid legs as she has pedal edema Continue sodium restricted diet and strict I&Os Diarrhea Also has IBS but states that it is different from her usual C diff toxin testing pending Procalcitonin normal Dizziness Could be from bradycardia or hypotension will Hold medications causing bradycardia and drop in blood pressure Orthostatic vitals ordered Hypertension will Hold home medication losartan 100 mg daily, metoprolol succinate 50 mg daily, propranolol 80 mg p.o. daily Patient is started today on amlodipine and hydralazine Diabetes mellitus type 2 HbA1c on 03/02/2025 and 6.7 Started hyperglycemic/hypoglycemic protocol with Lantus 20 units and low-dose lispro protocol Chronic migraine No acute attack Continue home medication topiramate 25 mg p.o. b.i.d. Gastroparesis on home medication promethazine 25 mg p.o. b.i.d. and buspirone 5 mg p.o. b.i.d. Hyperlipidemia Lipid panel ordered Continue home medication rosuvastatin 20 mg p.o. HS DVT prophylaxis: SCDs Diet: Renal diet Condition is guarded we will continue to follow patient in AM Date of Service: Mar 21, 2025 Billing Provider: MANUEL YAN MD Common Visit Codes: [id number] INP/OBS CARE(HIGH) AMNUEL YAN MD Mar 21, 2025 19:53
[2025-03-21 20:11] LABS: PRO BRAIN NATRIURETIC PEPTIDE 3590 PG/ML (0-450)
[2025-03-21 20:44] LABS: ABG BASE EXCESS -3.7 mmol/L (-2.0-3.0); ABG HCO3 20.2 mmol/L (21.0-28.0); ABG OXYGEN SATURATION 88.8 % (94.0-98.0); ABG PCO2 (T) 31.7 mmHg (32.0-45.0); ABG PH (T) 7.419 (7.350-7.450); ABG PO2 (T) 54.4 mmHg (83.0-108.0); ALLEN'S TEST POSITIVE; FCOHb 0.3 % (0.5-1.5); FHHb 11.1 % (0.0-5.0); FIO2 36.0 mmHg/%; FLOW 4 L/min; FMetHb 0.3 % (0.0-1.5); FO2Hb 88.3 % (94.0-98.0); MODE NASAL CANNULA; PATIENT TEMPERATURE 36.2; TOTAL HEMOGLOBIN 11.4 G/dl (12.0-16.0)
[2025-03-21] MEDS ORDERED: ipratropium 0.5 MG/2.5ML nebule IH PRN (21:00)
[2025-03-22] VITALS (14 sets, daily range): BP systolic 119–152; BP diastolic 49–72; PULSE 77–96; RESP 15–28; TEMP 98–98.9; O2SAT 88–93
[2025-03-22 06:34] LABS: MEAN PLATELET VOLUME 8.8 FL (7.4-10.4); RED CELL DISTRIBUTION WIDTH 13.9 % (11.5-14.5)
[2025-03-22 06:47] LABS: INR 1.1 INR
[2025-03-22 07:09] LABS: CREATININE 2.80 MG/DL (0.40-0.90); PHOSPHORUS 4.6 MG/DL (2.3-4.5); TOTAL CARBON DIOXIDE 23.8 MMOL/L (24-32); eCRCL 15 ML/MIN; eGFR 16 ML/MIN
[2025-03-22] MEDS ORDERED: potassium Cl 40MEQ/1/2NS 520ml 520 ML IV PRN (09:40)
[2025-03-22] MEDS ORDERED: magnesium sulf-water 4G/100mL 100 ML IV PRN (09:40)
[2025-03-22] MEDS ORDERED: magnesium sulf-water 2g/50mL 50 ML IV PRN (09:40)
[2025-03-22] MEDS ORDERED: potassium Cl 20 mEq SR tablet PO PRN (09:40)
[2025-03-22] MEDS: potassium Cl 20 mEq SR tablet PO PRN (09:44)
[2025-03-22] MEDS: magnesium Cl slow-release 64mg tablet PO PRN (09:45)
--- NOTE | 2025-03-22 15:22 | PROGRESS NOTE ---
Progress Note Dictate Providers to CC ~ Progress Note: BUN and creatinine continue to improve. Her episode of shortness of breath appears to be associated with increased left mid and lower lung water without cardiomegaly but with prominent pulmonary earl and pulmonary hypertension with RV systolic 58. Kidneys do have an ATN pattern so I still have hope for continued improvement nephrograms are quite bright with poor excretion compatible with ATN. Antibiotic Ordered?: No Objective Vitals Vital Signs Date Time Temp Pulse Resp B/P (MAP) Pulse Ox O2 Delivery O2 Flow Rate FiO2 03/22/25 11:00 98.9 77 19 125/52 (76) 91 Nasal Cannula 8.0 03/22/25 07:44 50 Lab Results: 03/22/25 0537 03/22/25 0537 Coagulation Studies Laboratory Tests Test 03/21/25 06:04 03/22/25 05:37 Activated Partial Thromboplast Time 31 SECONDS (22-32) Prothrombin Time 11.4 SECONDS (9.0-12.0) INR International Normalized Ratio 1.1 INR Coagulation Comments CROW NAYAK MD Mar 22, 2025 15:22
--- NOTE | 2025-03-22 18:48 | PROGRESS NOTE ---
Daily Progress Note Providers to CC ~ Antibiotic Timeout Antibiotic Ordered?: No Subjective Was seen in room requiring 6 L of oxygen decreased lung crackles as compared to yesterday. Dr. Francis following the patient for CKD Objective Vital Signs Date Time Temp Pulse Resp B/P (MAP) Pulse Ox O2 Delivery O2 Flow Rate FiO2 03/22/25 15:00 98.3 77 21 135/55 (81) 92 Nasal Cannula 8.0 03/22/25 07:44 50 Result Diagram: 03/22/2553603/22/25536 General-patient not in any acute distress, alert awake oriented, obese, age- appropriate, looks comfortable HEENT-atraumatic normocephalic, neck supple without elevated JVD, no thyromegaly or carotid bruit. No lymphadenopathy bilaterally. Eyes-no icterus or pallor seen in eyes Chest-coarse breath sounds present to auscultation bilaterally , breathing nonlabored no tachypnea, Heart-S1-S2 normal, regular heart rate no murmur Abdomen bowel sounds positive on auscultation, soft nondistended nontender no guarding, no rigidity Skin no active skin rash Neurology-grossly intact, nonfocal alert awake oriented Extremity- no pedal edema able to move all 4 extremities Psychiatry - patient is not confused or agitated cooperated during physical examination Coagulation Studies Laboratory Tests Test 03/21/25 06:04 03/22/25 05:37 Activated Partial Thromboplast Time 31 SECONDS (22-32) Prothrombin Time 11.4 SECONDS (9.0-12.0) INR International Normalized Ratio 1.1 INR Coagulation Comments Problem\Assessment\Plan Acute on chronic HFpEF Not requiring any oxygen supplementation Chest x-ray: Hyperinflated, borderline cardiomegaly, bilateral pulmonary vascular congestion ProBNP 5724 now - 2895 in February 2025 Echocardiogram on 01/28/2025 showed EF 70% Repeat BNP ordered Symptomatic sinus bradycardia-resolved Hold metoprolol TSH 4.14 New onset end-stage renal disease Uremia, hyperphosphatemia Has significantly decreased eGFR-8, and elevated creatinine-4.98 On 03/04/2025, creatinine 1.08 and EGFR 49 Urinalysis reviewed Avoid NSAIDs, CALI/arbs Phosphorus-6.4. Normal calcium levels Started calcium acetate 667 mg p.o. t.i.d. Renal ultrasound done ER provider consulted on-call engine mechanic-Dr. Francis and he is following the patient Dr. Francis ordered urine lytes and recommended abdomen/pelvis CT and bladder scan. Also recommended no forearm IVs or PICC line Ordered abdomen/pelvis CT without contrast. Strictly advised nurses to avoid forearm IVs and also to avoid legs as she has pedal edema Continue sodium restricted diet and strict I&Os Diarrhea Also has IBS but states that it is different from her usual C diff toxin testing pending Procalcitonin normal Dizziness Could be from bradycardia or hypotension will Hold medications causing bradycardia and drop in blood pressure Orthostatic vitals ordered Hypertension will Hold home medication losartan 100 mg daily, metoprolol succinate 50 mg daily, propranolol 80 mg p.o. daily Patient is started today on amlodipine and hydralazine Diabetes mellitus type 2 HbA1c on 03/02/2025 and 6.7 Started hyperglycemic/hypoglycemic protocol with Lantus 20 units and low-dose lispro protocol Chronic migraine No acute attack Continue home medication topiramate 25 mg p.o. b.i.d. Gastroparesis on home medication promethazine 25 mg p.o. b.i.d. and buspirone 5 mg p.o. b.i.d. Hyperlipidemia Lipid panel ordered Continue home medication rosuvastatin 20 mg p.o. HS DVT prophylaxis: SCDs Diet: Renal diet Condition is guarded we will continue to follow patient in AM Date of Service: Mar 22, 2025 Billing Provider: MANUEL YAN MD Common Visit Codes: [id number] INP/OBS CARE(HIGH) MANUEL YAN MD Mar 22, 2025 18:48
[2025-03-23] VITALS (23 sets, daily range): BP systolic 117–149; BP diastolic 43–78; PULSE 72–82; RESP 16–30; TEMP 97.8–98.8; O2SAT 85–97
[2025-03-23 06:08] LABS: MEAN PLATELET VOLUME 8.8 FL (7.4-10.4); RED CELL DISTRIBUTION WIDTH 13.4 % (11.5-14.5)
[2025-03-23 06:19] LABS: INR 1.1 INR
[2025-03-23 06:49] LABS: CREATININE 2.54 MG/DL (0.40-0.90); PHOSPHORUS 4.4 MG/DL (2.3-4.5); TOTAL CARBON DIOXIDE 22.8 MMOL/L (24-32); eCRCL 17 ML/MIN; eGFR 18 ML/MIN
[2025-03-23 10:07] LABS: ABG BASE EXCESS -3.2 mmol/L (-2.0-3.0); ABG HCO3 21.1 mmol/L (21.0-28.0); ABG OXYGEN SATURATION 94.4 % (94.0-98.0); ABG PCO2 (T) 35.0 mmHg (32.0-45.0); ABG PH (T) 7.398 (7.350-7.450); ABG PO2 (T) 76.4 mmHg (83.0-108.0); ALLEN'S TEST POSITIVE; FCOHb 0.2 % (0.5-1.5); FHHb 5.6 % (0.0-5.0); FIO2 71.0 mmHg/%; FLOW 15 L/min; FMetHb 0.3 % (0.0-1.5); FO2Hb 93.9 % (94.0-98.0); MODE HIGH FLOW; PATIENT TEMPERATURE 37.0; TOTAL HEMOGLOBIN 10.5 G/dl (12.0-16.0)
[2025-03-23] MEDS: ipratropium/albuterol 3ml nebule NEB SCH (11:51)
[2025-03-23] MEDS: CefTRIAXone 2gm/D5W 50ml BAG 50 ML IV ONE (12:18)
[2025-03-23] MEDS: methylPREDNISolone sod succ/PF 40mg inj. IV SCH (12:19)
--- NOTE | 2025-03-23 12:34 | RADIOLOGY REPORT ---
EXAM: DI CHEST,SINGLE VIEW Indication: increase oxy req Technique: Single frontal view of the chest was obtained Comparison: DI CHEST,SINGLE VIEW on DOS: 03/21/25, DI CHEST,SINGLE VIEW on DOS: 03/18/25, DI CHEST,SINGLE VIEW on DOS: 03/01/25, DI CHEST,SINGLE VIEW on DOS: 01/27/25, CHEST,SINGLE VIEW on DOS: 05/22/21 FINDINGS: Lines and Tubes: None Lungs: Worsening multifocal consolidative opacities. Trace bilateral pleural effusions. No pneumothorax. Cardiomediastinal contours: Cardiomegaly Bones: No acute osseous abnormality. IMPRESSION: Worsening multifocal consolidative opacities. Trace bilateral pleural effusions.
[2025-03-23 12:38] LABS: PRO BRAIN NATRIURETIC PEPTIDE 2749 PG/ML (0-450)
--- NOTE | 2025-03-23 15:00 | PROGRESS NOTE- Residence ---
Progress Note - Resident Providers to CC Resident Creating Document: ALISON GARCIA RES ~ Antibiotic Timeout Antibiotic Ordered?: Yes Subjective Patient was seen and examined at the bedside today. Her kidney function is getting better. She is on 15 L high-flow oxygen. Her chest x-ray shows worsening consolidations. Was started on Lasix, methylprednisolone and antibiotics. . Objective Vital Signs Date Time Temp Pulse Resp B/P (MAP) Pulse Ox O2 Delivery O2 Flow Rate FiO2 03/23/25 12:03 73 20 94 15.0 03/23/25 11:59 High Flow [place] 03/23/25 11:51 71 03/23/25 11:00 97.9 136/61 (86) Result Diagram: 03/23/2545 03/23/2545 General: Alert and oriented x4 HEENT: Normocephalic and atraumatic. Pupils equal round reactive to light and accommodation. Extraocular movements intact. Oral and nasal mucosa moist Neck: Trachea is in midline. No masses or JVD Chest: Bilaterally decreased breath sounds, more in the left side, rhonchi and crackles heard in the left lower lobes. Cardiovascular: Sinus rhythm. Low heart rate. No rubs or murmurs Abdomen: Soft and nontender. Pyyy-dc-gvyflltmkd distended. Normoactive bowel sounds Extremities: Bilateral 2+ pedal edema. No cyanosis or clubbing Central Nervous System: No gross sensory or motor deficits. CN II to XII grossly intact. No cerebellar signs Skin: Warm and dry Coagulation Studies Laboratory Tests Test 03/21/25 06:04 03/23/25 05:45 Activated Partial Thromboplast Time 31 SECONDS (22-32) Prothrombin Time 11.3 SECONDS (9.0-12.0) INR International Normalized Ratio 1.1 INR Coagulation Comments Assessment Assessment This is a very nice lady. We are seeing some gradual improvement in renal function,, question due to hydration or some resolution of ATN from the kidneys taking a hit when she dropped her cardiac output with the labetalol. We will continue to watch. Nearing enough improvement for DC. Watch out for labetolol. Plan Plan Assessment This is a 74-year-old female with history of hypertension, type 2 diabetes mellitus, gastroparesis, bradycardia, irritable bowel syndrome came to the ER with a chief complaint of shortness of breadth, associated with orthopnea, was admitted and being managed for acute heart failure with preserved ejection fraction. Nephrology team has been consulted for acute kidney injury. Her creatinine at this admission is 5.12, creatinine in 03/04/2025 was 1.08. She denies any difficulty in urinating. Also denies any acute event in the past one month. She uses Aleve and naproxen previously, previously used up to four tablets a day of each. Renal NM scan showed poor excretion, compatible with ATN. His kidney function continues to improve. Plan MADELIN/ATN Hyperphosphatemia, uremia Creatinine improved to 2.54, creatinine at the time of admission was 4.98 BUN 45, BUN/creatinine 17.7 Baseline creatinine in 03/04/2025 was 1.[address] abdomen showed normal findings of the kidney Renal vascular ultrasound showed no hemodynamically significant stenosis. Renal NM scan showed minimal excretion of radiotracer into the collecting system, symmetric renal function with both kidneys responsible for 50% of total renal function. 24 hour urine studies showed volume of 1100 mL, protein 223.3, urea nitrogen 6.8, creatinine 1 375- Plan Renal function continues to improve, she needs a follow up in the outpatient to know the new baseline. Strict I&Os Renal diet No forearm IV, no PICC line, no Matos's UTI Urine analysis positive for infection Urine culture positive for Enterococcus galinarum Acute hypoxemic respiratory failure secondary to pneumonia vs CHF exacerbation On high-flow oxygen with 15 L of oxygen Chest x-ray showed worsening bilateral consolidation. Echocardiogram showed an ejection fraction of 70% with the elevated RVSP 58 Started on Lasix 20 mg b.i.d. On methylprednisolone, ceftriaxone,. Bradycardia-improved Metoprolol held Hypertension Diabetes mellitus Hyperlipidemia Blood pressure in the normal range A1c 6.7, On Lantus 20 units On rosuvastatin 20 mg Alison garcia M.D PGY2 Nephrology Resident. Date of Service: Mar 23, 2025 Billing Provider: CROW NAYAK MD, PRAVAHIKA, RES Mar 23, 2025 14:59 CROW NAYAK MD Mar 23, 2025 23:53
--- NOTE | 2025-03-23 19:20 | PROGRESS NOTE ---
Daily Progress Note Providers to CC ~ Antibiotic Timeout Antibiotic Ordered?: Yes Subjective Patient's breathing is more worse requiring 15 L high-flow oxygen currently. Patient is started on antibiotics ceftriaxone, nebulizer and steroids. ABG done results discussed with respiratory therapist. Nephrology team following the patient for CKD which is improved. Objective Vital Signs Date Time Temp Pulse Resp B/P (MAP) Pulse Ox O2 Delivery O2 Flow Rate FiO2 03/23/25 16:20 High Flow Nasal Cannula 15.0 03/23/25 16:01 77 20 03/23/25 15:59 91 03/23/25 15:53 71 03/23/25 15:00 97.9 145/62 (89) Result Diagram: 03/23/25 0545 03/23/25 0545 General-patient not in any acute distress, alert awake oriented, obese, age- appropriate, looks comfortable HEENT-atraumatic normocephalic, neck supple without elevated JVD, no thyromegaly or carotid bruit. No lymphadenopathy bilaterally. Eyes-no icterus or pallor seen in eyes Chest-coarse breath sounds present to auscultation bilaterally , breathing nonlabored no tachypnea, Heart-S1-S2 normal, regular heart rate no murmur Abdomen bowel sounds positive on auscultation, soft nondistended nontender no guarding, no rigidity Skin no active skin rash Neurology-grossly intact, nonfocal alert awake oriented Extremity- no pedal edema able to move all 4 extremities Psychiatry - patient is not confused or agitated cooperated during physical examination Coagulation Studies Laboratory Tests Test 03/21/25 06:04 03/23/25 05:45 Activated Partial Thromboplast Time 31 SECONDS (22-32) Prothrombin Time 11.3 SECONDS (9.0-12.0) INR International Normalized Ratio 1.1 INR Coagulation Comments Problem\Assessment\Plan Acute on chronic HFpEF Chest x-ray: Hyperinflated, borderline cardiomegaly, bilateral pulmonary vascular congestion ProBNP 5724 now - 2895 in February 2025 Echocardiogram on 01/28/2025 showed EF 70% Repeat BNP ordered Symptomatic sinus bradycardia-resolved Hold metoprolol TSH 4.14 # possible pneumonia- x-ray chest repeated which showed multifocal consolidative opacities. Trace bilateral pleural effusions. Patient's breathing is more worse requiring 15 L high-flow oxygen currently. Patient is started on antibiotics ceftriaxone, nebulizer and steroids. ABG done results discussed with respiratory therapist. New onset end-stage renal disease Uremia, hyperphosphatemia Has significantly decreased eGFR-8, and elevated creatinine-4.98 On 03/04/2025, creatinine 1.08 and EGFR 49 Urinalysis reviewed Avoid NSAIDs, CAIL/arbs Phosphorus-6.4. Normal calcium levels Started calcium acetate 667 mg p.o. t.i.d. Renal ultrasound done ER provider consulted on-call fruit packer-Dr. Francis and he is following the patient Dr. Francis ordered urine lytes and recommended abdomen/pelvis CT and bladder scan. Also recommended no forearm IVs or PICC line Ordered abdomen/pelvis CT without contrast. Strictly advised nurses to avoid forearm IVs and also to avoid legs as she has pedal edema Continue sodium restricted diet and strict I&Os Nephrology team following the patient for CKD which is improved. Diarrhea Also has IBS but states that it is different from her usual C diff toxin testing pending Procalcitonin normal Dizziness Could be from bradycardia or hypotension will Hold medications causing bradycardia and drop in blood pressure Orthostatic vitals ordered Hypertension will Hold home medication losartan 100 mg daily, metoprolol succinate 50 mg daily, propranolol 80 mg p.o. daily Patient is started today on amlodipine and hydralazine Diabetes mellitus type 2 HbA1c on 03/02/2025 and 6.7 Started hyperglycemic/hypoglycemic protocol with Lantus 20 units and low-dose lispro protocol Chronic migraine No acute attack Continue home medication topiramate 25 mg p.o. b.i.d. Gastroparesis on home medication promethazine 25 mg p.o. b.i.d. and buspirone 5 mg p.o. b.i.d. Hyperlipidemia Lipid panel ordered Continue home medication rosuvastatin 20 mg p.o. HS DVT prophylaxis: SCDs Diet: Renal diet Condition is guarded we will continue to follow patient in AM Date of Service: Mar 23, 2025 Billing Provider: MANUEL YAN MD Common Visit Codes: [id number] INP/OBS CARE(HIGH) MANUEL YAN MD Mar 23, 2025 19:20
[2025-03-23] MEDS: HYDROcodone/acetaminophen 10/325mg tab PO PRN (19:58)
[2025-03-24] VITALS (8 sets, daily range): BP systolic 106–135; BP diastolic 48–64; PULSE 68–80; RESP 10–20; TEMP 97–97.9; O2SAT 97–98
[2025-03-24] MEDS: CefTRIAXone 2gm/D5W 50ml BAG 50 ML IV SCH (09:42)
[2025-03-24 11:36] LABS: MEAN PLATELET VOLUME 8.4 FL (7.4-10.4); RED CELL DISTRIBUTION WIDTH 13.2 % (11.5-14.5)
[2025-03-24 11:53] LABS: CREATININE 2.59 MG/DL (0.40-0.90); TOTAL CARBON DIOXIDE 26.4 MMOL/L (24-32); eCRCL 17 ML/MIN; eGFR 18 ML/MIN
--- NOTE | 2025-03-24 12:13 | PROGRESS NOTE- Residence ---
Progress Note - Resident Providers to CC Resident Creating Document: ALISON GARCIA RES ~ Antibiotic Timeout Antibiotic Ordered?: Yes Subjective Patient was seen and examined at the bedside today. Oxygen requirement has improved and she is currently on 6 L of oxygen with nasal cannula. Her lungs sound better compared to yesterday. She is on Lasix, IV methylprednisolone and ceftriaxone. Objective Vital Signs Date Time Temp Pulse Resp B/P (MAP) Pulse Ox O2 Delivery O2 Flow Rate FiO2 03/24/25 11:09 78 20 High Flow Sal[place] 6.0 03/24/25 11:04 97 48 03/24/25 11:00 97.2 106/48 (67) Result Diagram: 03/24/25 1125 03/24/25 1125 General: Alert and oriented x4 HEENT: Normocephalic and atraumatic. Pupils equal round reactive to light and accommodation. Extraocular movements intact. Oral and nasal mucosa moist Neck: Trachea is in midline. No masses or JVD Chest: Bilaterally decreased breath sounds with some rhonchi diffusely, better compared to yesterday. Cardiovascular: Sinus rhythm. Low heart rate. No rubs or murmurs Abdomen: Soft and nontender. Nmtn-bg-xjiqgdnvks distended. Normoactive bowel sounds Extremities: Bilateral 2+ pedal edema. No cyanosis or clubbing Central Nervous System: No gross sensory or motor deficits. CN II to XII grossly intact. No cerebellar signs Skin: Warm and dry Coagulation Studies Laboratory Tests Test 03/21/25 06:04 03/23/25 05:45 Activated Partial Thromboplast Time 31 SECONDS (22-32) Prothrombin Time 11.3 SECONDS (9.0-12.0) INR International Normalized Ratio 1.1 INR Coagulation Comments Plan Plan Assessment This is a 74-year-old female with history of hypertension, type 2 diabetes mellitus, gastroparesis, bradycardia, irritable bowel syndrome came to the ER with a chief complaint of shortness of breadth, associated with orthopnea, was admitted and being managed for acute heart failure with preserved ejection fraction. Nephrology team has been consulted for acute kidney injury. Her creatinine at this admission is 5.12, creatinine in 03/04/2025 was 1.08. She denies any difficulty in urinating. Also denies any acute event in the past one month. She uses Aleve and naproxen previously, previously used up to four tablets a day of each. Renal NM scan showed poor excretion, compatible with ATN. His kidney function continues to improve. Plan MADELIN/ATN Hyperphosphatemia, uremia Creatinine improved to 2.59, creatinine at the time of admission was 4.98 BUN 46. BUN/creatinine 17.8 Total urine output, 0.97 mL//kg hour, total urine output 2400 mL Baseline creatinine in 03/04/2025 was 1.[address] abdomen showed normal findings of the kidney Renal vascular ultrasound showed no hemodynamically significant stenosis. Renal NM scan showed minimal excretion of radiotracer into the collecting system, symmetric renal function with both kidneys responsible for 50% of total renal function. 24 hour urine studies showed volume of 1100 mL, protein 223.3, urea nitrogen 6.8, creatinine 1 375- Plan Renal function is stable, she needs a follow up in the outpatient to know the new baseline. Patient is currently on Lasix for fluid overload Strict I&Os Renal diet No forearm IV, no PICC line, no Matos's UTI Urine analysis positive for infection Urine culture positive for Enterococcus galinarum Ceftriaxone. Acute hypoxemic respiratory failure secondary to pneumonia vs CHF exacerbation Oxygen requirements improved, currently on 6 L of oxygen. Chest x-ray showed worsening bilateral consolidation. Echocardiogram showed an ejection fraction of 70% with the elevated RVSP 58 Started on Lasix 20 mg b.i.d. On methylprednisolone, ceftriaxone,. Bradycardia-improved Metoprolol held Hypertension Diabetes mellitus Hyperlipidemia Blood pressure in the normal range A1c 6.7, On Lantus 20 units On rosuvastatin 20 mg Alison garcia M.D PGY2 Nephrology Resident. Date of Service: Mar 24, 2025 Billing Provider: GIANLUCA RODRIGUEZ III, PRAVAHIKA, RES Mar 24, 2025 12:13
--- NOTE | 2025-03-24 20:34 | DISCHARGE SUMMARY ---
Discharge Summary Providers to CC ~ Discharge Summary Admission Diagnosis: acute CHF, Kidney failure Hospital Course DATE OF ADMISSION: March 19, 2025 DATE OF DISCHARGE:March 24, 2025 CBC testing done on March 24, 2025 WBC 5.8 hemoglobin 10.7 hematocrit 30.3 sed rate 70 platelet count 274. Serum chemistry done on March 24, 2025 sodium 144 potassium 3.6 creatinine 2.59 GFR 18 normal liver enzymes. Lactic acid 1.2 blood culture showed no growth after five days, urine culture showed Enterococcus During hospitalization patient had multiple x-ray chest, renal scan NM, CT abdomen chest and pelvis, renal ultrasound, echocardiogram done. Please see the details results in electronic health records. Discharge Diagnosis\\Comment: Acute on chronic HFpEF Symptomatic sinus bradycardia-resolved possible pneumonia- x-ray chest repeated which showed multifocal consolidative opacities. New onset end-stage renal disease Uremia, hyperphosphatemia, Diarrhea, Dizziness , Hypertension, Diabetes mellitus type 2Chronic migraine, Gastroparesis, Hyperlipidemia Operations\\Procedures: None Consultants: Dr Francis Complications: None Condition on DC: Stable for transfer Discharge Summary: As per admitting provider's history and physical note" The 74-year-old female with a past medical history of hypertension, diabetes mellitus type 2, br adycardia, irritable bowel syndrome, gastroparesis, chronic headaches fibromyalgia presented to the ER with a chief concern of worsening shortness of breath in the last two weeks. Had shortness of breaths for many months but got worse recently. Mentioned that she feels short of breath even with daily activities like taking a shower and so takes a shower only when she has to go ou t. Orthopnea present but denies any PND. Has chronic cough for many months now and does not bring up any phlegm. Occasionally feels chest pressure but no chest pain. She feels chest pressure even at rest and she gets it when she walks but not that walking triggers it. Mentioned that she recently had a stress test done in February this year which was normal. Denies any AR or cardiac stenting in the past. Mentioned that she occasionally has low heart rate in 30s and 40s. Also complains of dizziness when she suddenly stands up and when she walks. Denies any falls. Uses a cane to walk around. She also complains of diarrhea since her discharge from recent hospital admission- 03/02/25 to 03/04/25 when she was treated for acute HFpEF and possible community- acquired pneumonia. Was not discharged on Lasix and has been taking lots of fluids lately. Mentioned that she has IBS and has constipation and diarrhea occasionally. But, stated that the diarrhea now is severe. Had about 7-10 episodes of loose watery brown stool since the discharge and mentioned that the diarrhea is improved today but had two episodes since she arrived to the ER. Tried lazx-psy-ajivlon Imodium which helped initially but is no longer has been with the diarrhea. Had lower abdominal pain few days back but denies any pain now. Had colonoscopy about two years back which showed benign polyps. Denies any blood in stool. Complains of increased frequency of urination but denies any dysuria. She also complains of neck pain that started about two weeks back which was worse even at rest but mentioned that it improved today and is able to comfortably move her neck. Denies any radiation of pain to chest, back, jaw or arm. Denies any nausea or vomiting, fever with chills. Stated that she has be en feeling fatigued for the last few days. Mentioned that she has chronic back pain from an accident that happened many years back and has a spine stimulator. Feels that her abdomen is swollen. Has been taking Aleve-one pill and Tylenol daily and took lots of Aleve (six pills in a day) about six months back. Had kidney stones many years back but never got any procedure like ureteral stenting done. Denies any recurrent UTIs but complained of bladder spasms in the past. Had a sleep study a month back and was diagnosed with mild sleep apnea and was not recommended a CPAP. During hospitalization patient was treated for Acute on chronic HFpEF Chest x-ray: Hyperinflated, borderline cardiomegaly, bilateral pulmonary vascular congestion ProBNP 5724 now - 2895 in February 2025 Echocardiogram on 01/28/2025 showed EF 70% Repeat BNP ordered Symptomatic sinus bradycardia-resolved Hold metoprolol TSH 4.14 # possible pneumonia- x-ray chest repeated which showed multifocal consolidative opacities. Trace bilateral pleural effusions. Patient's breathing is more worse requiring 15 L high-flow oxygen currently. Patient is started on antibiotics ceftriaxone, nebulizer and steroids. ABG done results discussed with respiratory therapist. New onset end-stage renal disease Uremia, hyperphosphatemia Has significantly decreased eGFR-8, and elevated creatinine-4.98 On 03/04/2025, creatinine 1.08 and EGFR 49 Urinalysis reviewed Avoid NSAIDs, CALI/arbs Phosphorus-6.4. Normal calcium levels Started calcium acetate 667 mg p.o. t.i.d. Renal ultrasound done ER provider consulted on-call grape pruner-Dr. Francis and he is following the patient Dr. Francis ordered urine lytes and recommended abdomen/pelvis CT and bladder scan. Also recommended no forearm IVs or PICC line Ordered abdomen/pelvis CT without contrast. Strictly advised nurses to avoid forearm IVs and also to avoid legs as she has pedal edema Continue sodium restricted diet and strict I&Os Nephrology team following the patient for CKD which is improved. Diarrhea Also has IBS but states that it is different from her usual C diff toxin testing pending Procalcitonin normal Dizziness Could be from bradycardia or hypotension will Hold medications causing bradycardia and drop in blood pressure Orthostatic vitals ordered Hypertension will Hold home medication losartan 100 mg daily, metoprolol succinate 50 mg daily, propranolol 80 mg p.o. daily Patient is started today on amlodipine and hydralazine Diabetes mellitus type 2 HbA1c on 03/02/2025 and 6.7 Started hyperglycemic/hypoglycemic protocol with Lantus 20 units and low-dose lispro protocol Chronic migraine No acute attack Continue home medication topiramate 25 mg p.o. b.i.d. Gastroparesis on home medication promethazine 25 mg p.o. b.i.d. and buspirone 5 mg p.o. b.i.d. Hyperlipidemia Lipid panel ordered Continue home medication rosuvastatin 20 mg p.o. HS DVT prophylaxis: SCDs Diet: Renal diet Patient is feeling better she has been afebrile and getting discharged to rehab in stable condition. Medication reconciliation done for rehab facility. Patient is seen and examined on the day of discharge. All labs, diagnostic workup and discharge plan discussed with patient in detail before her discharge. All questions and queries answered to the best of my professional medical knowledge. I heard patient's concerns and address appropriately. Patient was cleared by Physical therapy team for home discharge . tax audit manager involved in patient's discharge plan. General-patient not in any acute distress, alert awake oriented, obese, age- appropriate, looks comfortable, acquiring 6 L oxygen via high-flow salter HEENT-atraumatic normocephalic, neck supple without elevated JVD, no thyromegaly or carotid bruit. No lymphadenopathy bilaterally. Eyes-no icterus or pallor seen in eyes Chest-coarse breath sounds present to auscultation bilaterally , breathing nonlabored no tachypnea, Heart-S1-S2 normal, regular heart rate no murmur Abdomen bowel sounds positive on auscultation, soft nondistended nontender no guarding, no rigidity Skin no active skin rash Neurology-grossly intact, nonfocal alert awake oriented Extremity- no pedal edema able to move all 4 extremities Psychiatry - patient is not confused or agitated cooperated during physical examination *Problems/Diagnosis: (1) CHF (congestive heart failure) Status: Acute (2) MADELIN (acute kidney injury) Status: Acute Total Time Spent on D/C: > 30 Minutes Date of Service: Mar 24, 2025 Billing Provider: MANUEL YAN MD Common Visit Codes: 04241-EKB/OBS DISCH DAY >30min MANUEL YAN MD Mar 24, 2025 20:30
--- NOTE | 2025-03-26 14:57 | CONSULTATION ---
DATE OF CONSULTATION: 03/18/2025 DICTATING PHYSICIAN: Rajendra Francis MD RENAL AND INTENSIVE CARE CONSULTATION REASON FOR CONSULTATION: Acute kidney injury. HISTORY OF PRESENT ILLNESS: This elderly lady came to the emergency room for dizziness. She had increased shortness of breath and weakness. No chest pain and new onset inability to ambulate without getting short of breath. She has a history of bradycardia, but no atrial fibrillation. MEDICATIONS: Pertinent medications are amlodipine; glipizide; losartan, which increases the impact of dehydration or prerenal state on renal function; metoprolol, which can cause hyporeninemic hypoaldosteronism; propranolol similarly; and topiramate. She has a history of fibromyalgia, but not on steroids as far as we know at this point. Pressure was 97/65, heart rate 71, O2 saturation 96%, and weight 100 kg. She is described as in mild respiratory distress, no use of accessory muscles; atrial fibrillation, bradycardia, and no murmurs. Abdominal exam was unremarkable. 2+ pitting edema. White count 8900, hematocrit 34.6, MCH 31.4 with indices otherwise normal. She has 72% neutrophils, 16% lymphs. She has mild hyperchloremic acidosis of 106 and 21.4 with a normal anion gap of 15, BUN is 57, creatinine 4.96, glucose 173, albumin 4, proBNP 57.24. We should get spot urine studies, bladder scan to be sure that there is no obstruction, echocardiogram in the morning, and with her 2+ edema and albumin of 4, we probably should be careful with giving fluids. We should try to get old studies if available from any outside physician. BUN and creatinine on 03/04/2025 were 1.08 creatinine and BUN 29, so that was mildly abnormal. Globulin was 3.4 on 03/03/2025 and 2.6 on 02/02/2025. I do not really know what is going on, although she apparently has hypertension and diabetes, so urinalysis and spot urine studies will be helpful, as well as CT of abdomen and pelvis without contrast. I would get a bladder scan and decide on hydration after we get chest x-ray and CT of abdomen and pelvis. We should avoid forearm IVs and PICC lines in case she needs ongoing dialysis. Echocardiogram will be helpful. Rajendra Francis MD TID: [id number] RECEIPT: [id number] ESTEFANIA/UNIQUE
== END 2025-03-24 14:51 | DRG 291 ==
LOC: ER 18:46 → ED HOLD 03-19 → PCU 3S 03-19 05:45
PROVIDERS: ADMIT Internal Medicine; ATTEND Internal Medicine
PROC: CT131ZZ Planar Nuclear Medicine Imaging of Kidneys, Ureters and Bladder using Technetium 99m (Tc-99m) (ICD-10-PCS; principal; 2025-03-19)
PROC: 5A0935A Assistance with Respiratory Ventilation, Less than 24 Consecutive Hours, High Flow/Velocity Cannula (ICD-10-PCS; 2025-03-22)
PROC: 5A0945A Assistance with Respiratory Ventilation, 24-96 Consecutive Hours, High Flow/Velocity Cannula (ICD-10-PCS; 2025-03-23)
DX: I13.2 Hypertensive heart and chronic kidney disease with heart failure and with stage 5 chronic kidney disease, or end stage renal disease (principal); I50.33 Acute on chronic diastolic (congestive) heart failure; N18.6 End stage renal disease; J18.9 Pneumonia, unspecified organism; J96.01 Acute respiratory failure with hypoxia; N17.0 Acute kidney failure with tubular necrosis; N39.0 Urinary tract infection, site not specified; I48.91 Unspecified atrial fibrillation; M79.7 Fibromyalgia; K31.84 Gastroparesis; G43.909 Migraine, unspecified, not intractable, without status migrainosus; E78.5 Hyperlipidemia, unspecified; E83.39 Other disorders of phosphorus metabolism; E11.22 Type 2 diabetes mellitus with diabetic chronic kidney disease; G47.30 Sleep apnea, unspecified; I27.20 Pulmonary hypertension, unspecified; I49.8 Other specified cardiac arrhythmias; K58.0 Irritable bowel syndrome with diarrhea; E11.43 Type 2 diabetes mellitus with diabetic autonomic (poly)neuropathy; Z88.8 Allergy status to other drugs, medicaments and biological substances; Z79.84 Long term (current) use of oral hypoglycemic drugs; Z79.899 Other long term (current) drug therapy
CPT/HCPCS: 36415; 36600; 71045; 71250; 74176; 76770; 78707; 80048; 80053; 80061; 81001; 82570; 82803; 82948; 83605; 83735; 83880; 83935; 84100; 84133; 84145; 84156; 84300; 84443; 84484; 84540; 84550; 84560; 85018; 85025; 85610; 85651; 85730; 87040; 87077; 87081; 87088; 87186; 93005; 93308; 93975; 94640; 94664; 94760; 97161; 97530; 99285; A4615; A6258; A9562; G0378; J0696; J1815; J1938; J2270; J2919; J7030; Q0169